=== PATIENT | male | born 1935 | race Caucasian/White ===

== ENCOUNTER 2019-08-17 11:47 | Inpatient (IN) | payer MEDICARE ==
[~2019-08-17] VITALS: Ht 165.1 cm; Wt 71.5 kg
[~2019-08-17 11:47] MED LIST: ACET65TA OR; COUM1TAB18 OR; DIOV80TA OR; FISH1000 OR; GARLPOW PO; LISI20TA5 OR; PERC5TAB8 OR
[2019-08-17] MEDS ORDERED: METOPROLOL TART 25 MG TABLET PO ONE (12:15)
[2019-08-17] MEDS ORDERED: ASPIRIN 81 MG CHEW TABLET PO ONE (12:15)
[2019-08-17] MEDS: METOPROLOL 5 MG/5 ML VIAL IV SCH ×3 (12:20→13:03)
[2019-08-17 12:22] LABS: BASO # 0.1 10^3/uL (0.0-0.2); EOS # 0.1 10^3/uL (0.0-0.5); HEMATOCRIT 51.7 % (42.0-52.0); HEMOGLOBIN 17.4 g/dl (13.5-17.5); LYMPH # 1.1 10^3/uL (1.5-5.0); LYMPH % 14.8 % (24.0-44.0); MEAN CORPUSCULAR HEMOGLOBIN 33.5 pg (27.0-33.0); MEAN CORPUSCULAR HGB CONC 33.7 g/dl (32.0-36.5); MEAN CORPUSCULAR VOLUME 99.6 fl (80.0-96.0); MONO # 0.5 10^3/uL (0.0-0.8); MONO % 7.1 % (0.0-5.0); NEUTROPHILS # 5.8 10^3/uL (1.5-8.5); NEUTROPHILS % 75.7 % (36.0-66.0); PLATELET COUNT, AUTOMATED 195 10^3/uL (150-450); RED BLOOD COUNT 5.19 10^6/uL (4.30-6.10); WHITE BLOOD COUNT 7.6 10^3/uL (4.0-10.0)
[2019-08-17] MEDS ORDERED: FUROSEMIDE 40MG/4ML VIAL (J1940) IV ONE (12:30)
[2019-08-17 12:35] LABS: INR 1.3; PROTHROMBIN TIME 15.9 SECONDS (11.8-14.0)
[2019-08-17 12:36] LABS: PARTIAL THROMBOPLASTIN TIME 30.3 SECONDS (25.0-38.4)
[2019-08-17 13:05] LABS: ALBUMIN 3.8 GM/DL (3.2-5.2); BILIRUBIN,DIRECT 0.4 MG/DL (0.0-0.2); BILIRUBIN,TOTAL 1.3 MG/DL (0.2-1.0); CK-MB VALUE MASS 4.8 NG/ML (<3.6); CREATININE FOR GFR 1.24 MG/DL (0.70-1.30); GLOMERULAR FILTRATION RATE 59.3 (>35); MB/CK RELATIVE INDEX 4.29 (< OR =4); POTASSIUM SERUM 4.5 MEQ/L (3.5-5.1); THYROID STIMULATING HORMONE 3.33 uIU/ML (0.358-3.740); TOTAL PROTEIN 6.6 GM/DL (6.4-8.2); TROPONIN I 0.05 NG/ML (< 0.10)
--- NOTE | 2019-08-17 13:45 | REP ---
REASON: Chest pain. Latest for comparison is frontal view obtained as part of a rib series 04/05/2013. The technique utilized in obtaining the radiograph has magnified the cardiac silhouette and accentuated the interstitial markings. There is cardiomegaly accentuated by technique. There is a diffuse increase in the interstitial markings accentuated by technique. There are no patchy opacities or definite pleural effusions. 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 There is no change in the osseous structures. IMPRESSION: Technique as described above with additional findings. I cannot rule out mild interstitial edema superimposed on chronic change. Electronically Signed by Edmundo Harper DO 08/17/2019 04:07 P
--- NOTE | 2019-08-17 14:38 | HPEPDOC ---
[facility] Medical History & Physical Date of Admission August 17, 2019 Date of Service: August 17, 2019 Attending Physician: Meliza Concepcion MD History and Physical CHIEF COMPLAINT: Worsening shortness of breath HISTORY OF PRESENT ILLNESS: The patient is an 83-year-old male with no significant past medical history who presented to [facility] after being sent here from urgent care for substernal chest pain and increasing shortness of breath.Patient says yesterday while working out in the yard he had severe, 8/10 chest pain with lifting mulch. Patient states that his symptoms of shortness of breath, anterior chest pains are not new and have been present over the past one year on and off. Chest pain is anteriorly located, nonradiating, present for most times 20 mins, dull in character. Pain is worse with activity or heavy activity (lifting, etc.). Other associated symptoms include palpitations in the chest (over the past 1 year) increased productive "coughing" with white phlegm, lower ext swelling worsened over the past 2 weeks. He denies lightheadedness and dizziness, nausea, vom iting, diaphoresis. No prior cardiac history, no family history. In the ER, vital signs showed temperature 96.2, heart rate 791 13 H Chuck fibrillation with RVR, respiratory rate 2627, blood pressure 976031/968544, and 97% on room air. Chest x-ray showed cardiomegaly, cannot rule out mild interstitial markings with chronic changes, no opacities or pleural effusions. He was noted to have 3+ pitting edema in the bilateral lower extremities. He admitted to drinking 1 quart of alcohol every 2 weeks, 3 shots per night. H&H 17.4/51.4, BNP 6197, CK-MB 4.8, troponin negative 1. TSH was within normal limits. The patient was given Lopressor 5 mg IV 1, metoprolol tartrate 25 mg by mouth 1, aspirin 325 mg by mouth, Lasix 40 mg IV. Blood pressure improved to 146/100, heart rate 78 and irregularly irregular. ECG showed atrial fibrillation with RVR with heart rate of 102, anterior fascicular block, nonspecific ST and T wave abnormalities. When compared to an ECG in 2012 there appear to be some new changes. The patient was admitted under hospitalist service with a diagnosis of atrial fibrillation with RVRnew diagnosis, acute congestive heart failure with exacerbation, uncontrolled hypertension. REVIEW OF SYSTEMS: CONSTITUTIONAL: Denies lack of energy, unexplained weight gain or weight loss, loss of appetite, fever, night sweats EYES: Denies eye drainage, eye pain, visual changes, dry/irritated eye EARS, NOSE, MOUTH, THROAT: Denies ringing in ears, mouth sores, loose teeth, sore throat, facial numbness or pain NECK: Denies swollen glands CARDIOVASCULAR: Denies pain in legs with walking RESPIRATORY: Denies night sweats, wheezing, oxygen at home, coughing up blood GASTROINTESTINAL: Denies abdominal pain, constipation, bloody stool, diarrhea, heartburn, nausea, vomiting GENITOURINARY: Denies painful urination, bloody urine, frequent urination, urgency, leaking urine, impotence MUSCULOSKELETAL: Denies joint pain, muscle pain INTEGUMENTARY: Denies rash, itching, new skin lesion, change in existing skin lesion, hair loss or increase, breast changes. NEUROLOGICAL: Denies headaches, dizziness, difficulty walking, numbness or tingling PSYCHIATRIC: Denies depression, anxiety, recurrent bad thoughts, mood swings, hallucinations PAST MEDICAL HISTORY: 1. Hearing loss- wears hearing aid PAST SURGICAL HISTORY: 1. left knee surgery SOCIAL HISTORY: Prior smoker of 15 years, smoked 3 cigars/day. Quit 50 years ago. Drinks 1 quart of alcohol every 2 weeks, 3 shots/night. Denies drug use. Patient lives with his in the local area. Patient does not have a PCP that he follows with. Patient is a DNR/DNI. FAMILY HISTORY: Father: no medical issues, in 70's Mother: multiple sclerosis, at 82 y/o Brother: DM type II, at 74 y/o ALLERGIES: Please see below. HOME MEDICATIONS: Please see below. PHYSICAL EXAMINATION: CONSTITUTIONAL: No acute distress, resting comfortably, AAO x 3 EYES: PERRLA, EOM intact HENT, MOUTH: Normocephalic, atraumatic, moist mucous membranes, NECK: SUPPLE, no JVD, no lymphadenopathy, no carotid bruit CV: irregularly irregular rhythm, rate controlled, S1S2 normal, no murmurs/rubs/gallops RESPIRATORY: Clear to auscultation bilaterally, no rales/rhonchi/wheezes GI: obese abdomen, BS positive in 4 quadrants, soft, nontender, nondistended, no rebound or guarding, no organomegaly : Deferred MUSCULOSKELETAL: Normal ROM. No cyanosis, clubbing, swelling, joint deformity. +3 pitting edema in the bilateral lower ext. INTEGUMENTARY: Intact, no rashes, no lesions, no erythema NEUROLOGIC: Cranial Nerves II-XII are intact, no focal deficits PSYCHIATRIC: Mood and affect are normal LABORATORY DATA: Please see below IMAGING: CXR: There is cardiomegaly accentuated by technique. There is a diffuse increase in the interstitial markings accentuated by technique. There are no patchy opacities or definite pleural effusions. 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 There is no change in the osseous structures. ASSESSMENT: 83 y/o M admitted for further treatment/evaluation of newly diagnosed atrial fibrillation with RVR, acute CHF exacerbation, uncontrolled HTN. PLAN: 1. Atrial fibrillation with RVR. New diagnosis but likely has been present over the past 1 year with duration of symptoms. TSH wnl, f/u UA with no other infection suspected. Started on metoprolol tartrate 25 mg PO BID, xarelto. F/u echocardiogram, cardiology consult. 2. Congestive heart failure, acute. New diagnosis and likely 2/2 to uncontrolled atrial fib vs. underlying heart disease, hx of alcohol abuse. +3 pitting edema, BNP 6197. F/u echocardiogram, lipid panel, cardiology consult, strict I&O, daily wts. C/w BB, lasix BID. 3. Uncontrolled HTN. BP better improved s/p lasix, lopressor 5 mg IV x1 and metoprolol PO. Monitor on telemetry. Started on metoprolol BID. 4. Alcohol abuse. States to drink 1 quart of alcohol every 2 weeks, 3 shots/night. Cardiomegaly seen on CXR. Started on thiamine, folate, CIWA protocol, monitor for signs of withdrawl. 5. GI px. PPI. 6. DVT px. Xarelto. DISPOSITION: Admitted under inpatient status. Plan is discharge home when me dically improved. Vital Signs Vital Signs Date Time Temp Pulse Resp B/P (MAP) Pulse Ox O2 Delivery O2 Flow Rate FiO2 08/17/19 13:03 96 192/110 08/17/19 11:59 96.2 27 97 Room Air Laboratory Data Labs 24H Laboratory Tests 2 08/17/19 12:04: Immature Granulocyte % (Auto) 0.4, Neutrophils (%) (Auto) 75.7H, Lymphocytes (%) (Auto) 14.8L, Monocytes (%) (Auto) 7.1H, Eosinophils (%) (Auto) 1.0, Basophils (%) (Auto) 1.0, Neutrophils # (Auto) 5.8, Lymphocytes # (Auto) 1.1L, Monocytes # (Auto) 0.5, Eosinophils # (Auto) 0.1, Basophils # (Auto) 0.1, Nucleated Red Blood Cells % (auto) 0.0, Prothrombin Time 15.9H, Prothromb Time International Ratio 1.30, Activated Partial Thromboplast Time 30.3, Anion Gap 8, Glomerular Filtration Rate 59.3, Calcium Level 9.0, Total Bilirubin 1.3H, Direct Bilirubin 0.4H, Aspartate Amino Transf (AST/SGOT) 35, Alanine Aminotransferase (ALT/SGPT) 49, Alkaline Phosphatase 113, Total Creatine Kinase 112, Creatine Kinase MB 4.8H, Creatine Kinase MB Relative Index 4.29H, Troponin I 0.05, IX-Ovl-P-Type Natriuretic Peptide 6197H, Total Protein 6.6, Albumin 3.8, Albumin/Globulin Ratio 1.36, Thyroid Stimulating Hormone (TSH) 3.330 08/17/19 13:56: CBC/BMP Laboratory Tests 08/17/19 12:04 Allergies Coded Allergies: No Known Allergies (Unverified , 08/17/19) A-FIB/CHADSVASC A-FIB History Current/History of A-Fib/PAF?: Yes Current PO Anticoag Therapy: Yes Age/Risk Factor Scoring CHADSVASC: CHADSVASC Response (Comments) Value Age Risk Factor Age >/= 75 years old 2 Gender Risk Factor Male 0 Hx of CHF Yes 1 Hx of HTN Yes 1 Hx of Stroke/TIA/or VTE No 0 Hx of Diabetes No 0 Hx of Vascular Disease No 0 Total 4 Treatment Treatment ordered: Rivaroxaban Meliza Concepcion MD August 17, 2019 14:37
[2019-08-17 15:23] LABS: CHOLESTEROL RISK RATIO 3.651 (<5)
[2019-08-17] MEDS ORDERED: MORPHINE 2 MG/ML 1ML VIAL (J2270) IV PRN (15:30)
[2019-08-17] MEDS ORDERED: NITROGLYCERIN 0.4 MG SUBL TABLET SL PRN (15:30)
--- NOTE | 2019-08-17 15:43 | ECGEPIP ---
[facility] - ED Test Date: 2019-08-17 Pat Name: OTILIA KURTZ Department: Room: - Gender: Male Hook Up Driver: jfjosse : 1935 Requested By: NICK Mclaughlin Order Number: [id number] Reading MD: Nick Amezquita Measurements Intervals [place] Rate: 102 P: NM: 0 QRS: -48 QRSD: 125 T: 90 QT: 355 QTc: 463 Interpretive Statements ATRIAL FIBRILLATION WITH RAPID VENTRICULAR RESPONSE LEFT ANTERIOR FASCICULAR BLOCK Prolonged QTc interval Intraventricular conduction delay Inferior Q waves of uncertain significance MODERATE VOLTAGE CRITERIA FOR LVH, CONSIDER NORMAL VARIANT NONSPECIFIC ST & T-WAVE ABNORMALITY Comparison tracing not on file Baseline artifact Electronically Signed on 08-17-2019 15:42:48 EDT by Nick Amezquita
[2019-08-17 15:53] LABS: HEMOGLOBIN A1c 6.1 %
[2019-08-17 17:30] VITALS: BP 152/98
[2019-08-17] MEDS ORDERED: RIVAROXABAN 15 MG TAB (XARELTO) PO SCH ×2 (18:00)
[2019-08-17] MEDS: THIAMINE 100 MG TAB PO SCH (18:11)
[2019-08-17] MEDS: FOLIC ACID 1 MG TAB PO SCH (18:11)
[2019-08-17] MEDS: PANTOPRAZOLE 20 MG TAB PO SCH (19:02)
[2019-08-17] MEDS ORDERED: FUROSEMIDE 40MG/4ML VIAL (J1940) IV SCH (21:00)
[2019-08-17 21:26] VITALS: BP 115/72
[2019-08-17] MEDS: METOPROLOL TART 25 MG TABLET PO SCH (21:33)
[2019-08-17 22:00] VITALS: BP 115/72
[2019-08-18 01:33] LABS: APPEARANCE, URINE CLEAR (CLEAR); BACTERIA, URINE AUTO NEGATIVE (NEGATIVE); BILIRUBIN, URINE AUTO NEGATIVE (NEGATIVE); BLOOD, URINE BLOOD NEGATIVE (NEGATIVE); COLOR, URINE STRAW (YELLOW); GLUCOSE, URINE (UA) AUTO NEGATIVE (NEGATIVE); KETONE, URINE AUTO NEGATIVE (NEGATIVE); LEUKOCYTE ESTERASE, URINE AUTO NEGATIVE (NEGATIVE); NITRITE, URINE AUTO NEGATIVE (NEGATIVE); PROTEIN, URINE AUTO NEGATIVE (NEGATIVE); RBC, URINE AUTO 3 /HPF (0-3); SPECIFIC GRAVITY URINE AUTO 1.005 (1.002-1.035); SQUAMOUS EPITHELIAL CELL UR AU 0 /HPF (0-6); UROBILINOGEN, URINE AUTO 0.2 mg/dL (0.0-2.0); WBC, URINE AUTO 1 /HPF (0-3)
[2019-08-18 05:25] VITALS: BP 152/98
[2019-08-18 06:00] VITALS: BP 158/88
[2019-08-18 06:52] LABS: HEMOGLOBIN 16.5 g/dl (13.5-17.5); MEAN CORPUSCULAR HEMOGLOBIN 32.5 pg (27.0-33.0); MEAN CORPUSCULAR VOLUME 98.4 fl (80.0-96.0); PLATELET COUNT, AUTOMATED 199 10^3/uL (150-450); RED BLOOD COUNT 5.08 10^6/uL (4.30-6.10)
[2019-08-18 07:18] LABS: ALBUMIN 3.4 GM/DL (3.2-5.2); BILIRUBIN,TOTAL 1.5 MG/DL (0.2-1.0); CALCIUM LEVEL 8.8 MG/DL (8.8-10.2); CREATININE FOR GFR 1.41 MG/DL (0.70-1.30); GLOMERULAR FILTRATION RATE 51.1 (>35); POTASSIUM SERUM 4.1 MEQ/L (3.5-5.1); TOTAL PROTEIN 6.1 GM/DL (6.4-8.2)
[2019-08-18] MEDS ORDERED: FUROSEMIDE 40MG/4ML VIAL (J1940) IV SCH (09:00)
[2019-08-18] MEDS: PANTOPRAZOLE 20 MG TAB PO SCH (10:24)
[2019-08-18] MEDS: ASPIRIN 81 MG ENTERIC TAB PO SCH (10:24)
[2019-08-18] MEDS: APIXABAN 5 MG TAB (ELIQUIS) PO SCH ×2 (10:24→21:52)
[2019-08-18] MEDS: THIAMINE 100 MG TAB PO SCH (10:24)
[2019-08-18] MEDS: FOLIC ACID 1 MG TAB PO SCH (10:24)
[2019-08-18] MEDS: METOPROLOL TART 25 MG TABLET PO SCH ×2 (10:28→21:52)
--- NOTE | 2019-08-18 12:11 | ECHO ---
DATE OF SERVICE: 08/17/2019 REFERRING PROVIDER: Dr. Meliza Concepcion REASON FOR THE STUDY: Atrial fibrillation, heart failure. PATIENT LOCATION: Emergency room. 2D MEASUREMENTS: IVS: 1.2 cm LVPW: 1.2 cm LV: 5.4 cm LA: 4.8 cm Aorta: 3.4 cm IVC: 2.4 cm DOPPLER MEASUREMENTS: Peak velocity across the aortic valve: 1.1 m/s Peak velocity across the LVOT: 0.6 m/s Maximum tricuspid valve velocity: 2.9 m/s 2D COMMENTS: 1. Borderline enlarged left ventricle with normal left ventricular wall thickness but with a moderately to severely depressed global left ventricular systolic function. The estimated global left ventricular systolic ejection fraction is 30%. 2. Mildly enlarged left atrium. The right atrium and the right ventricle appeared to be normal in size. A sigmoid appearance of the basal ventricular septum was noted. 3. Mildly enlarged left atrium at 4.8 cm. 4. Normal aortic root. 5. No pericardial effusion seen. 6. Mildly calcified aortic valve with normal leaflet excursion. Mildly calcified mitral annulus with normal anterior mitral valve leaflet motion. Normal tricuspid valve and pulmonic valve. The proximal pulmonary artery branches also appeared to be normal. 7. The inferior vena cava was dilated, central venous pressure might be elevated. DOPPLER: It detects trace aortic regurgitation, mild mitral regurgitation, trace pulmonic regurgitation, and moderate tricuspid regurgitation. The calculated pulmonary artery systolic pressure varies between 40-50 mmHg. Assessment of the left ventricular diastolic function was limited in view of the underlying arrhythmia noted, atrial fibrillation. IMPRESSION: 1. Moderately severe global left ventricular systolic dysfunction with diffuse hypokinesis. Assessment of the left ventricular diastolic function was limited in view of the underlying arrhythmia/atrial fibrillation. 2. Aortic valve sclerosis with trace aortic regurgitation but no aortic stenosis. 3. Mildly enlarged left atrium with mild mitral regurgitation. 4. Moderate tricuspid regurgitation with moderate pulmonary hypertension. 5. There are findings consistent with elevated central venous pressure, the inferior vena cava was mildly enlarged. 6. Sigmoid appearance of the basal ventricular septum was noted, a benign finding. MTDD
[2019-08-18 14:00] VITALS: BP 118/72
--- NOTE | 2019-08-18 17:54 | IPNPDOC ---
Date Seen The patient was seen on 08/18/19. Progress Note SUBJECTIVE: -1.1 L/24 hr. Blood pressure and heart rate better controlled with medications. Echocardiogram showed moderately severe global left ventricular systolic dysfunction with diffuse hypokinesis. Ejection fraction approximately 30%. Lower extremity edema slightly improved. Denies chest pain, shortness of breath, nausea, vomiting. OBJECTIVE: VITAL SIGNS: Please see below PHYSICAL EXAMINATION: CONSTITUTIONAL: No acute distress, resting comfortably, AAO x 3 EYES: PERRLA, EOM intact HENT, MOUTH: Normocephalic, atraumatic, moist mucous membranes, NECK: SUPPLE, no JVD, no lymphadenopathy, no carotid bruit CV: irregularly irregular rhythm, rate controlled, S1S2 normal, no murmurs/ rubs/gallops RESPIRATORY: Clear to auscultation bilaterally, no rales/rhonchi/wheezes GI: obese abdomen, BS positive in 4 quadrants, soft, nontender, nondistended, no rebound or guarding, no organomegaly : Deferred MUSCULOSKELETAL: Normal ROM. No cyanosis, clubbing, swelling, joint deformity. +3 pitting edema in the bilateral lower ext. INTEGUMENTARY: Intact, no rashes, no lesions, no erythema NEUROLOGIC: Cranial Nerves II-XII are intact, no focal deficits PSYCHIATRIC: Mood and affect are normal LABORATORY DATA: Please see below IMAGING: Echocardiogram 08/17/19: 1. Moderately severe global left ventricular systolic dysfunction with diffuse hypokinesis. Assessment of the left ventricular diastolic function was limited in view of the underlying arrhythmia/atrial fibrillation. EF 30% 2. Aortic valve sclerosis with trace aortic regurgitation but no aortic stenosis. 3. Mildly enlarged left atrium with mild mitral regurgitation. 4. Moderate tricuspid regurgitation with moderate pulmonary hypertension. 5. There are findings consistent with elevated central venous pressure, the inferior vena cava was mildly enlarged. 6. Sigmoid appearance of the basal ventricular septum was noted, a benign finding. ASSESSMENT: 83 y/o M admitted for atrial fibrillation with RVR, acute systolic CHF exacerbation, uncontrolled HTN, chest pain. I PLAN: 1. Atrial fibrillation with RVR, likely chronic. Improved rate. TSH wnl. C/w metoprolol tartrate 25 mg PO BID, eliquis BID. Cardiology consulted. 2. Systolic congestive heart failure exacerbation. Neg fluid balance. Below good strength and Glyburide okay as he only mom that she is aware that is as I In presence of uncontrolled atrial fib, ? underlying heart disease, hx of alcohol abuse. Echo above. C/w BB, lasix, eliquis BID, strict I&O, daily wts. 3. Chest pain likely 2/2 to atrial fib with RVR- resolved. Multiple risk factors for heart disease. lipid panel and HbA1c unremarkable. C/w BB, ASA, morphine, nitro PRN. 4. Uncontrolled HTN. Improved with BB, lasix. 5. Alcohol abuse. No signs of withdrawl. C/w thiamine, folate, CIWA protocol, monitor for signs of withdrawl. 6. GI px. PPI. 7. DVT px. Eliquis. DISPOSITION: Admitted under inpatient status. Plan is discharge home when medically improved. VS, I&O, 24H, Rudolphbone Vital Signs/I&O Vital Signs Date Time Temp Pulse Resp B/P (MAP) Pulse Ox O2 Delivery O2 Flow Rate FiO2 08/18/19 14:00 97.4 51 18 118/72 (87) 95 Room Air I&O- Last 24 Hours up to 6 AM 08/18/19 05:59 Intake Total 0 ml Output Total 1625 ml Balance -1625 ml Laboratory Data 24H LABS Laboratory Tests 2 08/17/19 20:21: Troponin I 0.05 08/18/19 00:39: Urine Color STRAW, Urine Appearance CLEAR, Urine pH 6.0, Urine Specific Willis 1.005, Urine Protein NEGATIVE, Urine Glucose (Auto)(UA) NEGATIVE, Urine Ketones (Auto) NEGATIVE, Urine Blood NEGATIVE, Urine Nitrite NEGATIVE, Urine Bilirubin NEGATIVE, Urine Urobilinogen 0.2, Urine Leukocyte Esterase (Auto) NEGATIVE, Urine WBC (Auto) 1, Urine RBC (Auto) 3, Urine Hyaline Casts (Auto) 0, Urine Bacteria (Auto) NEGATIVE, Urine Squamous Epithelial Cells 0, Urine Sperm (Auto) 08/18/19 05:48: Nucleated Red Blood Cells % (auto) 0.0, Anion Gap 7L, Glomerular Filtration Rate 51.1, Calcium Level 8.8, Total Bilirubin 1.5H, Aspartate Amino Transf (AST/SGOT) 27, Alanine Aminotransferase (ALT/SGPT) 42, Alkaline Phosphatase 101, Total Protein 6.1L, Albumin 3.4, Albumin/Globulin Ratio 1.26 CBC/BMP Laboratory Tests 08/18/19 05:48 Current Medications Current Medications Medications (Trade) Dose Ordered Sig/Toney Route PRN Reason Start Time Stop Time Status Last Admin Dose Admin Apixaban (Eliquis) 5 mg BID PO 08/18/19 09:00 08/18/19 10:24 Aspirin (Ecotrin) 81 mg DAILY PO 08/18/19 09:00 08/18/19 10:24 Folic Acid (Folic Acid) 1 mg DAILY PO 08/17/19 09:00 08/18/19 10:24 Furosemide (LASIX injection) 30 mg BID IV 08/17/19 21:00 08/18/19 08:04 DC 08/17/19 21:33 Furosemide (LASIX injection) 40 mg DAILY IV 08/18/19 09:00 08/18/19 10:25 Home Med (Med Rec Complete!) ASDIRECTED XX 08/17/19 14:00 08/17/19 14:00 DC Metoprolol Tartrate (Lopressor) 5 mg Q5M IV 08/17/19 12:15 08/17/19 12:26 DC 08/17/19 13:03 Metoprolol Tartrate (Lopressor) 25 mg BID PO 08/17/19 21:00 08/18/19 10:28 Morphine Sulfate (Morphine Sulfate Inj) 1 mg Q8HP PRN IV SEVERE PAIN (PS 8-10) 08/17/19 15:30 Nitroglycerin (Nitrostat (1/ 150)) 0.4 mg Q5MP PRN SL CHEST PAIN 08/17/19 15:30 Pantoprazole Sodium (Protonix) 20 mg DAILY PO 08/17/19 09:00 08/18/19 10:24 Rivaroxaban (Xarelto) 15 mg BIDWM PO 08/17/19 18:00 08/17/19 14:33 DC Rivaroxaban (Xarelto) 15 mg DAILY@18 PO 08/17/19 18:00 08/18/19 00:54 DC 08/17/19 18:11 Thiamine HCl (Thiamine HCl) 100 mg DAILY PO 08/17/19 09:00 08/18/19 10:24 Allergies Coded Allergies: No Known Allergies (Unverified , 08/17/19) Meliza Concepcion MD August 18, 2019 17:54
[2019-08-18 21:49] VITALS: BP 145/97
[2019-08-18 22:00] VITALS: BP 145/97
[2019-08-19 06:00] VITALS: BP 142/92
[2019-08-19 06:43] LABS: HEMATOCRIT 50.1 % (42.0-52.0); MEAN CORPUSCULAR HEMOGLOBIN 33.6 pg (27.0-33.0); MEAN CORPUSCULAR HGB CONC 33.9 g/dl (32.0-36.5); PLATELET COUNT, AUTOMATED 190 10^3/uL (150-450); RED BLOOD COUNT 5.06 10^6/uL (4.30-6.10); WHITE BLOOD COUNT 7.2 10^3/uL (4.0-10.0)
[2019-08-19 07:14] LABS: ALBUMIN 3.2 GM/DL (3.2-5.2); BILIRUBIN,TOTAL 1.6 MG/DL (0.2-1.0); CALCIUM LEVEL 8.4 MG/DL (8.8-10.2); CREATININE FOR GFR 1.46 MG/DL (0.70-1.30); GLOMERULAR FILTRATION RATE 49.1 (>35); POTASSIUM SERUM 3.9 MEQ/L (3.5-5.1)
[2019-08-19] MEDS: ASPIRIN 81 MG ENTERIC TAB PO SCH (09:46)
[2019-08-19] MEDS: PANTOPRAZOLE 20 MG TAB PO SCH (09:46)
[2019-08-19] MEDS: APIXABAN 5 MG TAB (ELIQUIS) PO SCH ×2 (09:46→21:01)
[2019-08-19] MEDS: FOLIC ACID 1 MG TAB PO SCH (09:46)
[2019-08-19] MEDS: THIAMINE 100 MG TAB PO SCH (09:46)
[2019-08-19] MEDS: METOPROLOL TART 25 MG TABLET PO SCH ×2 (09:48→21:02)
[2019-08-19] MEDS: FUROSEMIDE 40MG/4ML VIAL (J1940) IV SCH ×2 (09:49→16:57)
[2019-08-19 14:00] VITALS: BP 151/77
--- NOTE | 2019-08-19 16:01 | IPNPDOC ---
Date Seen The patient was seen on 08/19/19. Progress Note SUBJECTIVE: +325/24 hr. Blood pressure (goal <150/90 for his age) and heart rate (goal HR <110 bpm) better controlled with medications. Increased lasix to 30 mg IV BID, BNP still elevated. Denies chest pain, shortness of breath, nausea, vomiting. OBJECTIVE: VITAL SIGNS: Please see below PHYSICAL EXAMINATION: CONSTITUTIONAL: No acute distress, resting comfortably, AAO x 3 EYES: PERRLA, EOM intact HENT, MOUTH: Normocephalic, atraumatic, moist mucous membranes, NECK: SUPPLE, no JVD, no lymphadenopathy, no carotid bruit CV: irregularly irregular rhythm, rate controlled, S1S2 normal, no murmurs/rubs/gallops RESPIRATORY: Clear to auscultation bilaterally, no rales/rhonchi/wheezes GI: obese abdomen, BS positive in 4 quadrants, soft, nontender, nondistended, no rebound or guarding, no organomegaly : Deferred MUSCULOSKELETAL: Normal ROM. No cyanosis, clubbing, swelling, joint deformity. +2 pitting edema in the bilateral lower ext- slightly improved. INTEGUMENTARY: Intact, no rashes, no lesions, no erythema NEUROLOGIC: Cranial Nerves II-XII are intact, no focal deficits PSYCHIATRIC: Mood and affect are normal LABORATORY DATA: Please see below IMAGING: No new imaging ASSESSMENT: 83 y/o M admitted for atrial fibrillation with RVR, acute systolic CHF exacerbation, uncontrolled HTN, chest pain. PLAN: 1. Systolic congestive heart failure exacerbation. + fluid balance/24 hrs but lower ext improving slowly. Increased lasix, BNP still elevated. Afib now controlled, ? underlying heart disease, hx of alcohol abuse. C/w BB, lasix BID, eliquis BID, strict I&O, daily wts. 2. Atrial fibrillation with RVR, likely chronic. C/w metoprolol tartrate 25 mg PO BID, eliquis BID. Cardiology consulted. 3. Chest pain likely 2/2 to atrial fib with RVR, cannot r/o underlying heart disease- resolved. Multiple risk factors for heart disease. Lipid panel and HbA1c unremarkable. Will need to f/u with cardiology to see about additional testing (i.e. stress test). C/w BB, ASA, morphine, nitro PRN. 4. HTN. Goal <150/90. Improved with BB, lasix. 5. Alcohol abuse. D/c CIWA, no signs of withdrawl. C/w thiamine, folate. 6. GI px. PPI. 7. DVT px. Eliquis. DISPOSITION: Admitted under inpatient status. Will need new patient appt and cardiology appointment made prior to discharge. Plan is discharge home when medically improved. VS, I&O, 24H, Fishbone Vital Signs/I&O Vital Signs Date Time Temp Pulse Resp B/P (MAP) Pulse Ox O2 Delivery O2 Flow Rate FiO2 08/19/19 14:00 97.5 66 18 151/77 (101) 97 Room Air I&O- Last 24 Hours up to 6 AM 08/19/19 06:00 Intake Total 850 ml Output Total 0 ml Balance 850 ml Laboratory Data 24H LABS Laboratory Tests 2 08/19/19 06:15: Nucleated Red Blood Cells % (auto) 0.0, Anion Gap 7L, Glomerular Filtration Rate 49.1, Calcium Level 8.4L, Total Bilirubin 1.6H, Aspartate Amino Transf (AST/SGOT) 27, Alanine Aminotransferase (ALT/SGPT) 39, Alkaline Phosphatase 101, GY-Gmd-N-Type Natriuretic Peptide 6119H, Total Protein 6.0L, Albumin 3.2, Albumin/Globulin Ratio 1.14 CBC/BMP Laboratory Tests 08/19/19 06:15 Current Medications Current Medications Medications (Trade) Dose Ordered Sig/Toney Route PRN Reason Start Time Stop Time Status Last Admin Dose Admin Apixaban (Eliquis) 5 mg BID PO 08/18/19 09:00 08/19/19 09:46 Aspirin (Ecotrin) 81 mg DAILY PO 08/18/19 09:00 08/19/19 09:46 Folic Acid (Folic Acid) 1 mg DAILY PO 08/17/19 09:00 08/19/19 09:46 Furosemide (LASIX injection) 30 mg BID IV 08/17/19 21:00 08/18/19 08:04 DC 08/17/19 21:33 Furosemide (LASIX injection) 30 mg BID@0900,1700 IV 08/19/19 09:00 08/19/19 09:49 Furosemide (LASIX injection) 40 mg DAILY IV 08/18/19 09:00 08/19/19 07:59 DC 08/18/19 10:25 Home Med (Med Rec Complete!) ASDIRECTED XX 08/17/19 14:00 08/17/19 14:00 DC Metoprolol Tartrate (Lopressor) 5 mg Q5M IV 08/17/19 12:15 08/17/19 12:26 DC 08/17/19 13:03 Metoprolol Tartrate (Lopressor) 25 mg BID PO 08/17/19 21:00 08/19/19 09:48 Morphine Sulfate (Morphine Sulfate Inj) 1 mg Q8HP PRN IV SEVERE PAIN (PS 8-10) 08/17/19 15:30 Nitroglycerin (Nitrostat (1/ 150)) 0.4 mg Q5MP PRN SL CHEST PAIN 08/17/19 15:30 Pantoprazole Sodium (Protonix) 20 mg DAILY PO 08/17/19 09:00 08/19/19 09:46 Rivaroxaban (Xarelto) 15 mg BIDWM PO 08/17/19 18:00 08/17/19 14:33 DC Rivaroxaban (Xarelto) 15 mg DAILY@18 PO 08/17/19 18:00 08/18/19 00:54 DC 08/17/19 18:11 Thiamine HCl (Thiamine HCl) 100 mg DAILY PO 08/17/19 09:00 08/19/19 09:46 Allergies Coded Allergies: No Known Allergies (Unverified , 08/17/19) Meliza Concepcion MD August 19, 2019 16:01
[2019-08-19 22:00] VITALS: BP 130/78
--- NOTE | 2019-08-20 05:17 | CR ---
DATE OF CONSULTATION: 08/17/2019 CARDIOLOGY CONSULTATION: REFERRING PROVIDER: Dr. Meliza Concepcion REASON FOR THE CONSULTATION: Atrial fibrillation. HISTORY OF PRESENT ILLNESS: 83-year-old male with no prior medical history and has not been seeing any physicians. Has been having shortness of breath with activities and palpitations on and off for about a year. He stated that his has been pushing for him go to see a doctor and also to go to the hospital for treatment, but he has not been listening to her. Lately, he also has been having chest discomfort on and off with activities and relieved with rest and his pedal edema continued to get worse as well as his shortness of breath. He went to a local urgent care, and he was told that he needed to go to the emergency room (ER) for further and treatment. Upon arrival at the ER, he was in atrial fibrillation with a rapid ventricular rate. His vital signs revealed blood pressure of 178/122 with a pulse of 109 and oxygen saturation of 97% with a temperature of 96.2 degrees Fahrenheit. His respiratory rate was reported to be 27. He was on given intravenous (IV) Lopressor 5 mg and oral Lopressor 25 mg, then admitted for further management and monitoring. Case was discussed with the admitting provider. When I saw Mr. Riaz Trotter on the fourth floor, he was sitting up in bed in no acute distress at rest and he stated that he was very happy that he came to the ER and he is already feeling much better. He has not been having any chest pain in the hospital, and he stated that he has passed a lot of urine and his pedal edema already has improved. He denies any orthopnea or paroxysmal nocturnal dyspnea (PND). He denies any dizziness, lightheadedness, syncope, or near syncope. He denies any bleeding. PAST SURGICAL HISTORY: Positive for hernia repair in 1997, shoulder surgery in 2004, and he has a history of BPH. FAMILY HISTORY: Noncontributory. CURRENT MEDICATIONS: - aspirin 81 mg by mouth daily - metoprolol tartrate 25 mg by mouth twice a day - Lasix 30 mg IV twice a day - rivaroxaban 15 mg by mouth daily - nitroglycerin sublingual as needed for chest pain - thiamine 100 mg by mouth daily - folic acid 1 mg by mouth daily - pantoprazole 20 mg by mouth daily SOCIAL HISTORY: Patient lives with his for more than 50 years. He does not smoke, but he drinks alcohol at times. He denies any illicit drugs. ALLERGIES: No known drug allergies. ADVANCE DIRECTIVES: He has a DO NOT INTUBATE and DO NOT RESUSCITATE status. PHYSICAL EXAMINATION: Patient is alert and oriented, in no acute distress at rest, and very pleasant. His vital signs when I saw him revealed a blood pressure of 115/72 with a pulse of 79, respirations 16, and his maximum temperature was 97.6 degrees Fahrenheit with an oxygen saturation of 96% on room air. He has passed about 1.1 liters since in the hospital. Examination of the head: Atraumatic. Fundus examination was not done. Neck is supple with extended jugular. The lungs did not reveal any wheezing or crackles at the time of examination. The heart examination revealed an irregular heart sound without gallops. The point of maximal impulse (PMI) is displaced inferiorly and laterally. There is no rub. There is a systolic murmur, grade 1/6, at the lower left sternal border and at the apex without any significant radiation. Abdomen appeared to be unremarkable. Extremities revealed +1 to +2 bilateral lower leg and ankle edema. Neurological examination was limited but no focal deficit. LABS: BMP revealed a sodium of 140, potassium 4.5, chloride 106, CO2 of 26, BUN 27, creatinine 1.24, GFR 59.3, and calcium 9.0. Liver enzymes revealed a total bilirubin of 1.3, direct bilirubin 0.4, AST 35, ALT 49, alkaline phosphatase 113, total protein 6.6, albumin 3.8. Serum troponin has been negative at 0.05, 0.06, and 0.05. Hemoglobin A1c was 6.1. Lipid profile revealed a total cholesterol of 157, triglycerides 89, LDL 96, and HDL 43. Serum TSH was 3.3. CBC revealed WBC of 7.6, hemoglobin 17.4, hematocrit 51.7, and platelet 195,000. PT was 15.9 with an INR of 1.3 and a PTT of 30.3 COVID-19 PCR was negative. Electrocardiogram done 08/17/2019 at 12:09 revealed atrial fibrillation at 102 beats per minute, left axis deviation and left anterior hemiblock, intraventricular conduction delay (IVCD), and nonspecific ST-T abnormalities. No prior tracing for comparison. Chest x-ray revealed mild interstitial edema. Echocardiogram revealed an estimated left ventricular ejection fraction (LVEF) of 30%. There was diffuse hypokinesis. IMPRESSION: 1. Atrial fibrillation and now with a controlled ventricular rate with a small dose of the short-acting beta-marni metoprolol tartrate, and I will continue the same. He is on Xarelto for prevention of thromboembolic events. He needs to be treated, but I would recommend to change it to Eliquis at 5 mg by mouth twice a day because there is less risk of bleeding. It seems that the atrial fibrillation is chronic because he has been symptomatic for about a year, if not more, according to the patient. There is no need at this present time for cardioversion. This will be revisited in a few months as outpatient. 2. 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 He is on a beta-marni with metoprolol tartrate. I will continue the same for now. I recommend to start him on Entresto at the lower dose and, in that case, I will discontinue the diuretics or cut it back to 10 mg daily. He appears to be doing well even though his LVEF is markedly depressed. If he cannot receive the Entresto, I will discharge him on an angiotensin-converting enzyme (MICKI) or an ARB with indications for low LVEF, such as valsartan or candesartan. In that case, I will continue with the furosemide at 20 mg by mouth daily. It was a pleasure to participate the care of Mr. Riaz Trotter for his underlying cardiac condition. He appears to be stable, and he probably may be able to go home by Tuesday. If he goes home, I will call him on Tuesday and give an appointment for this coming Tuesday or Tuesday. Please do not hesitate to call me over the weekend if you have any questions or issues. MAXIMILIAN
[2019-08-20 06:00] VITALS: BP 150/97
[2019-08-20 06:07] LABS: HEMATOCRIT 50.4 % (42.0-52.0); HEMOGLOBIN 16.7 g/dl (13.5-17.5); MEAN CORPUSCULAR HEMOGLOBIN 32.4 pg (27.0-33.0); MEAN CORPUSCULAR HGB CONC 33.1 g/dl (32.0-36.5); MEAN CORPUSCULAR VOLUME 97.9 fl (80.0-96.0); PLATELET COUNT, AUTOMATED 199 10^3/uL (150-450); RED BLOOD COUNT 5.15 10^6/uL (4.30-6.10); WHITE BLOOD COUNT 7.8 10^3/uL (4.0-10.0)
[2019-08-20 06:30] LABS: ALBUMIN 3.3 GM/DL (3.2-5.2); BILIRUBIN,TOTAL 1.7 MG/DL (0.2-1.0); CALCIUM LEVEL 8.4 MG/DL (8.8-10.2); CREATININE FOR GFR 1.41 MG/DL (0.70-1.30); GLOMERULAR FILTRATION RATE 51.1 (>35); POTASSIUM SERUM 3.9 MEQ/L (3.5-5.1); TOTAL PROTEIN 6.1 GM/DL (6.4-8.2)
[2019-08-20] MEDS: PANTOPRAZOLE 20 MG TAB PO SCH (08:30)
[2019-08-20] MEDS: ASPIRIN 81 MG ENTERIC TAB PO SCH (08:30)
[2019-08-20] MEDS: THIAMINE 100 MG TAB PO SCH (08:30)
[2019-08-20] MEDS: FOLIC ACID 1 MG TAB PO SCH (08:30)
[2019-08-20] MEDS: FUROSEMIDE 40MG/4ML VIAL (J1940) IV SCH ×2 (08:30→17:11)
[2019-08-20] MEDS: APIXABAN 5 MG TAB (ELIQUIS) PO SCH ×2 (08:30→20:36)
[2019-08-20] MEDS: METOPROLOL TART 25 MG TABLET PO SCH ×2 (08:31→20:36)
[2019-08-20] MEDS: **hydrALAZINE HCL** 25 MG TAB PO SCH ×2 (09:57→20:36)
[2019-08-20 14:00] VITALS: BP 120/70
--- NOTE | 2019-08-20 16:42 | IPNPDOC ---
Date Seen The patient was seen on 08/20/19. Progress Note SUBJECTIVE: +890/24 hr. Blood pressure (goal <150/90 for his age) and heart rate (goal HR <110 bpm). Started on hydralazine 25 mg PO BID today, monitoring blood pressure next 24 hours and continuing lasix. If BP tolerates, likely d/c home in AM. Denies chest pain, shortness of breath, nausea, vomiting. OBJECTIVE: VITAL SIGNS: Please see below PHYSICAL EXAMINATION: CONSTITUTIONAL: No acute distress, resting comfortably, AAO x 3 EYES: PERRLA, EOM intact HENT, MOUTH: Normocephalic, atraumatic, moist mucous membranes, NECK: SUPPLE, no JVD, no lymphadenopathy, no carotid bruit CV: irregularly irregular rhythm, rate controlled, S1S2 normal, no murmurs/rubs/gallops RESPIRATORY: Clear to auscultation bilaterally, no rales/rhonchi/wheezes GI: obese abdomen, BS positive in 4 quadrants, soft, nontender, nondistended, no rebound or guarding, no organomegaly : Deferred MUSCULOSKELETAL: Normal ROM. No cyanosis, clubbing, swelling, joint deformity. +1 pitting edema in the bilateral lower ext- much improved from admission INTEGUMENTARY: Intact, no rashes, no lesions, no erythema NEUROLOGIC: Cranial Nerves II-XII are intact, no focal deficits PSYCHIATRIC: Mood and affect are normal LABORATORY DATA: Please see below IMAGING: No new imaging ASSESSMENT: 83 y/o M admitted for atrial fibrillation with RVR, acute systolic CHF exacerbation, uncontrolled HTN, chest pain. PLAN: 1. Systolic congestive heart failure exacerbation. + fluid balance/24 hrs but -8 lbs since admission, lower ext edema much improved. C/w lasix BID (he will need to be discharged with lower dose lasix at discharge), BB, hydralazine BID, eliquis BID, strict I&Os, daily wts. Dr. Rincon (Cardiology) would like to see patient in office 08/24/19 after discharge. 2. Atrial fibrillation with RVR, likely chronic, new diagnosis. Controlled. C/w metoprolol tartrate 25 mg PO BID, eliquis BID. 3. Chest pain likely 2/2 to atrial fib with RVR, cannot r/o underlying heart disease- resolved. Multiple risk factors for heart disease. Lipid panel and HbA1c unremarkable. Will need to f/u with cardiology to see about additional testing (i.e. stress test). C/w BB, ASA, morphine, nitro PRN. 4. HTN. Goal <150/90. C/w hydralazine BID, BB, lasix. 5. Elevated bilirubin. No abdominal pain, other labs wnl. F/u CMP in AM. 6. Elevated Cr. Not acute kidney injury, likely from lasix use. Monitor daily. 7. Alcohol abuse. No signs of withdrawl. C/w thiamine, folate. 8. GI px. PPI. 9. DVT px. Eliquis. DISPOSITION: Admitted under inpatient status. Will need new patient appt for PCP and cardiology appointment made prior to discharge. Plan is discharge home on 08/21/19 if tolerates additional BP medication overnight. VS, I&O, 24H, Fishbone Vital Signs/I&O Vital Signs Date Time Temp Pulse Resp B/P (MAP) Pulse Ox O2 Delivery O2 Flow Rate FiO2 08/20/19 14:00 97.4 72 18 120/70 (87) 100 Room Air I&O- Last 24 Hours up to 6 AM 08/20/19 06:00 Intake Total 890 ml Output Total 0 ml Balance 890 ml Laboratory Data 24H LABS Laboratory Tests 2 08/20/19 05:10: Nucleated Red Blood Cells % (auto) 0.0, Anion Gap 8, Glomerular Filtration Rate 51.1, Calcium Level 8.4L, Total Bilirubin 1.7H, Aspartate Amino Transf (AST/SGOT) 26, Alanine Aminotransferase (ALT/SGPT) 35, Alkaline Phosphatase 95, Total Protein 6.1L, Albumin 3.3, Albumin/Globulin Ratio 1.18 CBC/BMP Laboratory Tests 08/20/19 05:10 Current Medications Current Medications Medications (Trade) Dose Ordered Sig/Toney Route PRN Reason Start Time Stop Time Status Last Admin Dose Admin Apixaban (Eliquis) 5 mg BID PO 08/18/19 09:00 08/20/19 08:30 Aspirin (Ecotrin) 81 mg DAILY PO 08/18/19 09:00 08/20/19 08:30 Folic Acid (Folic Acid) 1 mg DAILY PO 08/17/19 09:00 08/20/19 08:30 Furosemide (LASIX injection) 30 mg BID IV 08/17/19 21:00 08/18/19 08:04 DC 08/17/19 21:33 Furosemide (LASIX injection) 30 mg BID@0900,1700 IV 08/19/19 09:00 08/20/19 08:30 Furosemide (LASIX injection) 40 mg DAILY IV 08/18/19 09:00 08/19/19 07:59 DC 08/18/19 10:25 Home Med (Med Rec Complete!) ASDIRECTED XX 08/17/19 14:00 08/17/19 14:00 DC Hydralazine HCl (Apresoline) 25 mg BID PO 08/20/19 09:00 08/20/19 09:57 Metoprolol Tartrate (Lopressor) 5 mg Q5M IV 08/17/19 12:15 08/17/19 12:26 DC 08/17/19 13:03 Metoprolol Tartrate (Lopressor) 25 mg BID PO 08/17/19 21:00 08/20/19 08:31 Morphine Sulfate (Morphine Sulfate Inj) 1 mg Q8HP PRN IV SEVERE PAIN (PS 8-10) 08/17/19 15:30 Nitroglycerin (Nitrostat (1/ 150)) 0.4 mg Q5MP PRN SL CHEST PAIN 08/17/19 15:30 Pantoprazole Sodium (Protonix) 20 mg DAILY PO 08/17/19 09:00 08/20/19 08:30 Rivaroxaban (Xarelto) 15 mg BIDWM PO 08/17/19 18:00 08/17/19 14:33 DC Rivaroxaban (Xarelto) 15 mg DAILY@18 PO 08/17/19 18:00 08/18/19 00:54 DC 08/17/19 18:11 Thiamine HCl (Thiamine HCl) 100 mg DAILY PO 08/17/19 09:00 08/20/19 08:30 Allergies Coded Allergies: No Known Allergies (Unverified , 08/17/19) Meliza Concepcion MD August 20, 2019 16:42
[2019-08-20 22:00] VITALS: BP_SYST 115; BP_SYST 124; BP_DIAS 74; BP_DIAS 79
[2019-08-21 05:47] LABS: HEMATOCRIT 55.1 % (42.0-52.0); HEMOGLOBIN 18.4 g/dl (13.5-17.5); MEAN CORPUSCULAR HEMOGLOBIN 33.4 pg (27.0-33.0); MEAN CORPUSCULAR HGB CONC 33.4 g/dl (32.0-36.5); PLATELET COUNT, AUTOMATED 204 10^3/uL (150-450); RED BLOOD COUNT 5.51 10^6/uL (4.30-6.10); WHITE BLOOD COUNT 8.7 10^3/uL (4.0-10.0)
[2019-08-21 06:00] VITALS: BP 134/85
[2019-08-21 06:07] LABS: ALBUMIN 3.7 GM/DL (3.2-5.2); BILIRUBIN,TOTAL 1.7 MG/DL (0.2-1.0); CALCIUM LEVEL 8.5 MG/DL (8.8-10.2); CREATININE FOR GFR 1.41 MG/DL (0.70-1.30); GLOMERULAR FILTRATION RATE 51.1 (>35); POTASSIUM SERUM 3.9 MEQ/L (3.5-5.1); TOTAL PROTEIN 6.7 GM/DL (6.4-8.2)
[2019-08-21] MEDS: FUROSEMIDE 40MG/4ML VIAL (J1940) IV SCH (09:28)
[2019-08-21 09:29] VITALS: BP 136/87
[2019-08-21] MEDS: ASPIRIN 81 MG ENTERIC TAB PO SCH (09:29)
[2019-08-21] MEDS: THIAMINE 100 MG TAB PO SCH (09:29)
[2019-08-21] MEDS: FOLIC ACID 1 MG TAB PO SCH (09:29)
[2019-08-21] MEDS: APIXABAN 5 MG TAB (ELIQUIS) PO SCH (09:29)
[2019-08-21] MEDS: **hydrALAZINE HCL** 25 MG TAB PO SCH (09:29)
[2019-08-21] MEDS: METOPROLOL TART 25 MG TABLET PO SCH (09:30)
[2019-08-21] MEDS: PANTOPRAZOLE 20 MG TAB PO SCH (09:31)
[2019-08-21] MEDS ORDERED: HYDR25TA PO (09:42)
[2019-08-21] MEDS ORDERED: METO1TAB87 PO (09:42)
[2019-08-21] MEDS ORDERED: NITR4TASL SL (09:42)
[2019-08-21] MEDS ORDERED: ELIQ5TAB PO (09:42)
[2019-08-21] MEDS ORDERED: PANT20TA2 PO (09:42)
[2019-08-21] MEDS ORDERED: LASI40TA9 PO (09:42)
[2019-08-21] MEDS ORDERED: FOLI1TAB11 PO (09:42)
[2019-08-21] MEDS ORDERED: ASPI81TAEC PO (09:42)
[2019-08-21] MEDS ORDERED: POTA10TA17 PO (09:42)
[2019-08-21] MEDS ORDERED: THIA100TA PO (09:42)
--- NOTE | 2019-08-21 13:47 | DS.PDOC ---
Discharge Summary General Date of Admission August 17, 2019 at 14:02 Date of Discharge 08/21/19 Discharge Summary PROCEDURES PERFORMED DURING STAY: None. ADMITTING DIAGNOSES: 1. A. fib with RVR. DISCHARGE DIAGNOSES: 1. A. fib with RVR, acute systolic congestive heart failure, hypertension, alcohol abuse. COMPLICATIONS/CHIEF COMPLAINT: Atrial Fibrillation With RVR HISTORY OF PRESENT ILLNESS: The patient is an 83-year-old male with no significant past medical history who presented to [facility] after being sent here from urgent care for substernal chest pain and increasing shortness of breath.Patient says yesterday while working out in the yard he had severe, 8/10 chest pain with lifting mulch. Patient states that his symptoms of shortness of breath, anterior chest pains are not new and have been present over the past one year on and off. Chest pain is anteriorly located, nonradiating, present for most times 20 mins, dull in character. Pain is worse with activity or heavy activity (lifting, etc.). Other associated symptoms include palpitations in the chest (over the past 1 year) increased productive "coughing" with white phlegm, lower ext swelling worsened over the past 2 weeks. He denies lightheadedness and dizziness, nausea, vomiting, diaphoresis. No prior cardiac history, no family history. In the ER, vital signs showed temperature 96.2, heart rate 791 13 [address] [place] fibril lation with RVR, respiratory rate 2627, blood pressure 295864/526281, and 97% on room air. Chest x-ray showed cardiomegaly, cannot rule out mild interstitial markings with chronic changes, no opacities or pleural effusions. He was noted to have 3+ pitting edema in the bilateral lower extremities. He admitted to drinking 1 quart of alcohol every 2 weeks, 3 shots per night. H&H 17.4/51.4, BNP 6197, CK-MB 4.8, troponin negative 1. TSH was within normal limits. The patient was given Lopressor 5 mg IV 1, metoprolol tartrate 25 mg by mouth 1, aspirin 325 mg by mouth, Lasix 40 mg IV. Blood pressure improved to 146/100, heart rate 78 and irregularly irregular. ECG showed atrial fibrillation with RVR with heart rate of 102, anterior fascicular block, nonspecific ST and T wave abnormalities. When compared to an ECG in 2012 there appear to be some new changes. The patient was admitted under hospitalist service with a diagnosis of atrial fibrillation with RVRnew diagnosis, acute congestive heart failure with exacerbation, uncontrolled hypertension.. HOSPITAL COURSE: 83 y/o M admitted for atrial fibrillation with RVR, acute systolic CHF exacerbation, uncontrolled HTN, chest pain. Acute Systolic congestive heart failure with exacerbation. + fluid balance/24 hrs but -8 lbs since admission, lower ext edema much improved. Patient was continued on Lasix 30 mg IV twice a day but on discharge will be discharged home on Lasix 40 mg by mouth daily, will also continue his BB, hydralazine BID, eliquis BID, strict I&Os, daily wts. Dr. Rincon (Cardiology) would like to see patient in office 08/24/19 after discharge. Atrial fibrillation with RVR, likely chronic, new diagnosis. Controlled and metoprolol tartrate 25 mg by mouth twice a day and will add eliquiss for anticoagulation as well Chest pain likely 2/2 to atrial fib with RVR, cannot r/o underlying heart disease- resolved. Multiple risk factors for heart disease. Lipid panel and HbA1c unremarkable. Will need to f/u with cardiology to see about additional testing (i.e. stress test). C/w BB, ASA, morphine, nitro PRN. HTN. Patient. Blood pressure remained under control. Blood pressure on discharge was 134/85 , continue hydralazine BID, BB, lasix. Elevated bilirubin. No abdominal pain, other labs wnl. F/u CMP in AM. Elevated Cr. Not acute kidney injury, likely from lasix use. Monitor daily. Alcohol abuse. No signs of withdrawl. C/w thiamine, folate. .. DISCHARGE MEDICATIONS: Please see below. ALLERGIES: Please see below. PHYSICAL EXAMINATION ON DISCHARGE: VITAL SIGNS: Please see below. GENERAL: Within normal limits HEENT: [place] extraocular muscles intact NECK: Supple CARDIOVASCULAR EXAMINATION: S1, S2, irregular RESPIRATORY EXAMINATION: Clear to A&P ABDOMINAL EXAMINATION: Benign EXTREMITIES: No clubbing, cyanosis, edema SKIN: Normal NEUROLOGICAL EXAMINATION: , No focal motor or or sensory deficit PSYCHIATRIC EXAMINATION: Normal LABORATORY DATA: Please see below. IMAGING: Chest x-ray: Technique as described above with additional findings. I cannot rule out mild interstitial edema superimposed on chronic change. PROGNOSIS: Good ACTIVITY: As tolerated. DIET: Cardiac DISCHARGE PLAN: Home DISPOSITION: Home, Self-Care. DISCHARGE INSTRUCTIONS: 1. As per discharge instructions. ITEMS TO FOLLOWUP ON ON OUTPATIENT: 1. Follow with cardiology and PCP in one week. DISCHARGE CONDITION: Stable. TIME SPENT ON DISCHARGE: 32 minutes. Vital Signs/I&Os Vital Signs Date Time Temp Pulse Resp B/P (MAP) Pulse Ox O2 Delivery O2 Flow Rate FiO2 08/21/19 09:30 85 08/21/19 09:29 136/87 08/21/19 06:00 97.4 18 94 Room Air I&O- Last 24 Hours up to 6 AM 08/21/19 06:00 Intake Total 940 ml Output Total 100 ml Balance 840 ml Laboratory Data Labs 24H Laboratory Tests 2 08/21/19 05:16: Nucleated Red Blood Cells % (auto) 0.0, Anion Gap 6L, Glomerular Filtration Rate 51.1, Calcium Level 8.5L, Total Bilirubin 1.7H, Aspartate Amino Transf (AST/SGOT) 29, Alanine Aminotransferase (ALT/SGPT) 35, Alkaline Phosphatase 109, Total Protein 6.7, Albumin 3.7, Albumin/Globulin Ratio 1.23 CBC/BMP Laboratory Tests 08/21/19 05:16 Discharge Medications Scheduled Apixaban (Eliquis) 5 Mg Tablet, 5 MG PO BID Aspirin (Aspirin EC) 81 Mg Tablet.dr, 81 MG PO DAILY Folic Acid (Folic Acid) 1 Mg Tablet, 1 MG PO DAILY Furosemide (Lasix) 40 Mg Tablet, 1 TAB PO DAILY Hydralazine HCl (Hydralazine HCl) 25 Mg Tablet, 25 MG PO BID Metoprolol Tartrate (Metoprolol Tartrate) 25 Mg Tablet, 25 MG PO BID Pantoprazole Sodium (Pantoprazole Sodium) 20 Mg Tablet.dr, 20 MG PO DAILY Potassium Chloride (Potassium Chloride) 10 Meq Tab.er.prt, 1 TAB PO DAILY Thiamine Hcl (Vitamin B-1) 100 Mg Tablet, 100 MG PO DAILY Scheduled PRN Nitroglycerin (Nitrostat) 0.4 Mg Tab.subl, 0.4 MG SL Q5MP PRN for CHEST PAIN Allergies Coded Allergies: No Known Allergies (Unverified , 08/17/19) APRIL REILLY MD August 21, 2019 13:47
== END 2019-08-21 11:58 | disposition home or self-care (01) | DRG 308 ==
LOC: M ED 11:47 → EDBD 11:47 → M ED INP 14:02 → ENRESERV 15:13 → M MSPAV 17:33
PROVIDERS: ADMIT Internal Medicine; ATTEND Internal Medicine
DX: I48.20 Chronic atrial fibrillation, unspecified (principal); I50.23 Acute on chronic systolic (congestive) heart failure; I11.0 Hypertensive heart disease with heart failure; F10.10 Alcohol abuse, uncomplicated; Z79.82 Long term (current) use of aspirin; Z79.899 Other long term (current) drug therapy; Z79.01 Long term (current) use of anticoagulants

== ENCOUNTER → 2019-10-03 | Outpatient (REF) | payer MEDICARE ==
[~2019-10-03] MED LIST changes: +ASPI81TAEC PO; +ELIQ5TAB PO; +FOLI1TAB11 PO; +HYDR25TA PO; +LASI40TA9 PO; +METO1TAB87 PO; +NITR4TASL SL; +PANT20TA6 PO; +POTA10TA17 PO; +THIA100TA PO
[2019-10-03 12:50] LABS: APPEARANCE, URINE CLEAR (CLEAR); BACTERIA, URINE AUTO NEGATIVE (NEGATIVE); BILIRUBIN, URINE AUTO NEGATIVE (NEGATIVE); BLOOD, URINE BLOOD NEGATIVE (NEGATIVE); COLOR, URINE YELLOW (YELLOW); GLUCOSE, URINE (UA) AUTO NEGATIVE (NEGATIVE); KETONE, URINE AUTO NEGATIVE (NEGATIVE); LEUKOCYTE ESTERASE, URINE AUTO NEGATIVE (NEGATIVE); NITRITE, URINE AUTO NEGATIVE (NEGATIVE); PROTEIN, URINE AUTO NEGATIVE (NEGATIVE); RBC, URINE AUTO 0 /HPF (0-3); SPECIFIC GRAVITY URINE AUTO 1.016 (1.002-1.035); SQUAMOUS EPITHELIAL CELL UR AU 0 /HPF (0-6); UROBILINOGEN, URINE AUTO 0.2 mg/dL (0.0-2.0); WBC, URINE AUTO 0 /HPF (0-3)
[2019-10-03 14:59] LABS: BASO # 0.1 10^3/uL (0.0-0.2); BASO % 0.9 % (0.0-1.0); EOS # 0.3 10^3/uL (0.0-0.5); EOS % 4.1 % (0.0-3.0); LYMPH # 1.2 10^3/uL (1.5-5.0); LYMPH % 16.3 % (24.0-44.0); MEAN CORPUSCULAR HEMOGLOBIN 32.8 pg (27.0-33.0); MEAN CORPUSCULAR HGB CONC 32.7 g/dl (32.0-36.5); MEAN CORPUSCULAR VOLUME 100.4 fl (80.0-96.0); MONO # 0.7 10^3/uL (0.0-0.8); MONO % 9.3 % (0.0-5.0); NEUTROPHILS # 5.2 10^3/uL (1.5-8.5); NEUTROPHILS % 68.9 % (36.0-66.0); PLATELET COUNT, AUTOMATED 197 10^3/uL (150-450); RED BLOOD COUNT 4.88 10^6/uL (4.30-6.10); WHITE BLOOD COUNT 7.6 10^3/uL (4.0-10.0)
[2019-10-03 15:18] LABS: ALBUMIN 3.6 GM/DL (3.2-5.2); BILIRUBIN,TOTAL 0.6 MG/DL (0.2-1.0); CALCIUM LEVEL 9.1 MG/DL (8.8-10.2); CHOLESTEROL RISK RATIO 5.529 (<5); CREATININE FOR GFR 1.33 MG/DL (0.70-1.30); FREE T4 0.92 NG/DL (0.76-1.46); GLOMERULAR FILTRATION RATE 54.7 (>35); POTASSIUM SERUM 4.5 MEQ/L (3.5-5.1); THYROID STIMULATING HORMONE 2.71 uIU/ML (0.358-3.740); TOTAL 25(OH) VITAMIN D 30.4 NG/ML (30.0-100.0); TOTAL PROTEIN 6.7 GM/DL (6.4-8.2)
[2019-10-03 16:25] LABS: HEMOGLOBIN A1c 6.6 %
== END ==
LOC: M LAB REF 11:22
PROVIDERS: ATTEND Nurse Practitioner Family
DX: I11.0 Hypertensive heart disease with heart failure (principal); I48.91 Unspecified atrial fibrillation; I50.9 Heart failure, unspecified; Z13.9 Encounter for screening, unspecified

== ENCOUNTER → 2019-11-19 | Outpatient (REF) | payer MEDICARE ==
[2020-01-02 18:12] LABS: ALBUMIN 3.7 GM/DL (3.2-5.2); BILIRUBIN,TOTAL 0.8 MG/DL (0.2-1.0); CALCIUM LEVEL 8.8 MG/DL (8.8-10.2); CREATININE FOR GFR 1.44 MG/DL (0.70-1.30); GLOMERULAR FILTRATION RATE 49.8 (>35); POTASSIUM SERUM 4.5 MEQ/L (3.5-5.1); TOTAL PROTEIN 6.7 GM/DL (6.4-8.2)
== END ==
LOC: M LAB REF 14:55
PROVIDERS: ATTEND Nurse Practitioner Family
DX: R60.9 Edema, unspecified (principal); N17.9 Acute kidney failure, unspecified

== ENCOUNTER → 2020-02-20 | Outpatient (REF) | payer MEDICARE ==
[2020-02-20 12:18] LABS: BASO # 0.1 10^3/uL (0.0-0.2); BASO % 0.7 % (0.0-1.0); EOS # 0.2 10^3/uL (0.0-0.5); EOS % 2.2 % (0.0-3.0); HEMOGLOBIN 16.7 g/dl (13.5-17.5); LYMPH # 1.4 10^3/uL (1.5-5.0); LYMPH % 19.6 % (24.0-44.0); MEAN CORPUSCULAR HEMOGLOBIN 31.7 pg (27.0-33.0); MEAN CORPUSCULAR HGB CONC 32.7 g/dl (32.0-36.5); MONO # 0.7 10^3/uL (0.0-0.8); MONO % 10.3 % (0.0-5.0); NEUTROPHILS # 4.8 10^3/uL (1.5-8.5); NEUTROPHILS % 66.8 % (36.0-66.0); PLATELET COUNT, AUTOMATED 202 10^3/uL (150-450); RED BLOOD COUNT 5.26 10^6/uL (4.30-6.10); WHITE BLOOD COUNT 7.2 10^3/uL (4.0-10.0)
[2020-02-20 12:49] LABS: ALBUMIN 3.9 GM/DL (3.2-5.2); BILIRUBIN,TOTAL 0.7 MG/DL (0.2-1.0); CALCIUM LEVEL 9.3 MG/DL (8.8-10.2); CHOLESTEROL RISK RATIO 4.358 (<5); CREATININE FOR GFR 1.36 MG/DL (0.70-1.30); GLOMERULAR FILTRATION RATE 53.1 (>35); MAGNESIUM LEVEL 2.3 MG/DL (1.8-2.4); POTASSIUM SERUM 4.8 MEQ/L (3.5-5.1); TOTAL PROTEIN 6.7 GM/DL (6.4-8.2)
[2020-02-20 13:07] LABS: TOTAL 25(OH) VITAMIN D 27.3 NG/ML (30.0-100.0)
== END ==
LOC: M LAB REF 11:23
PROVIDERS: ATTEND Nurse Practitioner Family
DX: R60.9 Edema, unspecified (principal); E11.69 Type 2 diabetes mellitus with other specified complication; I50.9 Heart failure, unspecified; I11.0 Hypertensive heart disease with heart failure; I48.91 Unspecified atrial fibrillation; Z79.01 Long term (current) use of anticoagulants; Z79.899 Other long term (current) drug therapy

== ENCOUNTER → 2020-07-17 | Outpatient (REF) | payer MEDICARE ==
[~2020-07-17] MED LIST changes: +ASPI-569 PO; -ASPI81TAEC PO
[2020-07-17 17:21] LABS: ALBUMIN 3.8 GM/DL (3.2-5.2); BILIRUBIN,TOTAL 0.9 MG/DL (0.2-1.0); CALCIUM LEVEL 9.2 MG/DL (8.8-10.2); CHOLESTEROL RISK RATIO 4.219 (<5); CREATININE FOR GFR 1.35 MG/DL (0.70-1.30); GLOMERULAR FILTRATION RATE 53.6 (>35); MAGNESIUM LEVEL 2.2 MG/DL (1.8-2.4); POTASSIUM SERUM 4.7 MEQ/L (3.5-5.1); TOTAL PROTEIN 6.9 GM/DL (6.4-8.2)
[2020-07-17 17:22] LABS: BASO # 0.1 10^3/uL (0.0-0.2); BASO % 1.1 % (0.0-1.0); EOS # 0.1 10^3/uL (0.0-0.5); HEMATOCRIT 48.7 % (42.0-52.0); HEMOGLOBIN 15.9 g/dl (13.5-17.5); LYMPH # 1.5 10^3/uL (1.5-5.0); MEAN CORPUSCULAR HEMOGLOBIN 32.1 pg (27.0-33.0); MEAN CORPUSCULAR HGB CONC 32.6 g/dl (32.0-36.5); MEAN CORPUSCULAR VOLUME 98.2 fl (80.0-96.0); MONO # 0.6 10^3/uL (0.0-0.8); MONO % 8.6 % (2.0-8.0); NEUTROPHILS # 4.4 10^3/uL (1.5-8.5); NEUTROPHILS % 65.8 % (36.0-66.0); PLATELET COUNT, AUTOMATED 201 10^3/uL (150-450); RED BLOOD COUNT 4.96 10^6/uL (4.30-6.10); WHITE BLOOD COUNT 6.6 10^3/uL (4.0-10.0)
[2020-07-17 17:25] LABS: TOTAL 25(OH) VITAMIN D 22.5 NG/ML (30.0-100.0)
== END ==
LOC: M LAB REF 16:11
PROVIDERS: ATTEND Nurse Practitioner Family
DX: Z00.00 Encounter for general adult medical examination without abnormal findings (principal); Z79.899 Other long term (current) drug therapy

== ENCOUNTER → 2021-09-23 | Outpatient (CLI) | payer OTHER ==
[2021-09-23 11:12] LABS: ALBUMIN 3.4 GM/DL (3.2-5.2); BILIRUBIN,TOTAL 0.6 MG/DL (0.2-1.0); CALCIUM LEVEL 8.3 MG/DL (8.8-10.2); CREATININE FOR GFR 1.34 MG/DL (0.70-1.30); GLOMERULAR FILTRATION RATE 53.9 (>35); POTASSIUM SERUM 3.9 MEQ/L (3.5-5.1); TOTAL PROTEIN 6.4 GM/DL (6.4-8.2)
== END ==
LOC: M WUC 08:19
PROVIDERS: ATTEND Nurse Practitioner Family
DX: I42.0 Dilated cardiomyopathy (principal); I48.91 Unspecified atrial fibrillation; I10 Essential (primary) hypertension

== ENCOUNTER → 2022-04-06 | Outpatient (REF) | payer OTHER ==
[~2022-04-06] MED LIST changes: +POTA-150 PO; -POTA10TA17 PO
[2022-04-06 16:49] LABS: BASO % 0.4 % (0.0-1.0); EOS # 0.1 10^3/uL (0.0-0.5); EOS % 1.9 % (0.0-3.0); HEMATOCRIT 51.7 % (42.0-52.0); HEMOGLOBIN 16.8 g/dl (13.5-17.5); LYMPH # 1.2 10^3/uL (1.5-5.0); LYMPH % 16.3 % (24.0-44.0); MEAN CORPUSCULAR HEMOGLOBIN 31.7 pg (27.0-33.0); MEAN CORPUSCULAR HGB CONC 32.5 g/dl (32.0-36.5); MEAN CORPUSCULAR VOLUME 97.5 fl (80.0-96.0); MONO # 0.7 10^3/uL (0.0-0.8); MONO % 9.1 % (2.0-8.0); NEUTROPHILS # 5.3 10^3/uL (1.5-8.5); NEUTROPHILS % 71.6 % (36.0-66.0); PLATELET COUNT, AUTOMATED 205 10^3/uL (150-450); WHITE BLOOD COUNT 7.4 10^3/uL (4.0-10.0)
[2022-04-06 17:01] LABS: ALBUMIN 3.8 G/DL (3.2-5.2); BILIRUBIN,TOTAL 0.9 MG/DL (0.3-1.2); CALCIUM LEVEL 9.1 MG/DL (8.3-10.6); CHOLESTEROL RISK RATIO 4.4 (<5); CREATININE FOR GFR 1.33 MG/DL (0.70-1.30); GLOMERULAR FILTRATION RATE 54.3 (>35); HDL CHOLESTEROL 34.5 MG/DL (>40); LDL CHOLESTEROL 96.5 MG/DL (<100); POTASSIUM SERUM 5.3 MMOL/L (3.5-5.1); TOTAL PROTEIN 6.9 G/DL (5.7-8.2)
[2022-04-06 17:03] LABS: THYROID STIMULATING HORMONE 2.512 uIU/ML (0.55-4.78)
[2022-04-06 17:09] LABS: HEMOGLOBIN A1c 5.8 % (4.0-6.0)
== END ==
LOC: M LAB REF 16:08
PROVIDERS: ATTEND Nurse Practitioner Family
DX: Z13.228 Encounter for screening for other metabolic disorders (principal)

== ENCOUNTER 2022-05-16 14:45 | Emergency (ER) | payer MEDICARE, OTHER ==
[~2022-05-16] VITALS: Ht 170.2 cm; Wt 80.7 kg
[2022-05-16 15:20] LABS: BASO # 0.1 10^3/uL (0.0-0.2); BASO % 0.5 % (0.0-1.0); EOS # 0.1 10^3/uL (0.0-0.5); EOS % 0.5 % (0.0-3.0); HEMATOCRIT 48.6 % (42.0-52.0); HEMOGLOBIN 15.7 g/dl (13.5-17.5); LYMPH # 1.1 10^3/uL (1.5-5.0); LYMPH % 8.7 % (24.0-44.0); MEAN CORPUSCULAR HEMOGLOBIN 31.8 pg (27.0-33.0); MEAN CORPUSCULAR HGB CONC 32.3 g/dl (32.0-36.5); MEAN CORPUSCULAR VOLUME 98.6 fl (80.0-96.0); MONO # 0.7 10^3/uL (0.0-0.8); MONO % 5.7 % (2.0-8.0); NEUTROPHILS # 10.7 10^3/uL (1.5-8.5); NEUTROPHILS % 83.9 % (36.0-66.0); PLATELET COUNT, AUTOMATED 259 10^3/uL (150-450); RED BLOOD COUNT 4.93 10^6/uL (4.30-6.10); WHITE BLOOD COUNT 12.8 10^3/uL (4.0-10.0)
[2022-05-16] MEDS ORDERED: METOPROLOL TART 25 MG TABLET PO ONE (15:20)
[2022-05-16] MEDS ORDERED: METOPROLOL 5 MG/5 ML VIAL IV PRN (15:20)
[2022-05-16 15:31] LABS: INR 1.39; PROTHROMBIN TIME 17.3 SECONDS (12.5-14.5)
[2022-05-16 15:32] LABS: PARTIAL THROMBOPLASTIN TIME 31.4 SECONDS (24.8-34.2)
[2022-05-16 15:48] LABS: ALBUMIN 3.4 G/DL (3.2-5.2); BILIRUBIN,DIRECT 0.7 MG/DL (<0.4); BILIRUBIN,TOTAL 1.8 MG/DL (0.3-1.2); CALCIUM LEVEL 9.3 MG/DL (8.3-10.6); CREATININE FOR GFR 1.44 MG/DL (0.70-1.30); GLOMERULAR FILTRATION RATE 49.5 (>35); POTASSIUM SERUM 4.5 MMOL/L (3.5-5.1); TOTAL PROTEIN 6.8 G/DL (5.7-8.2)
[2022-05-16] MEDS ORDERED: ISOVUE-370 76% 100ML VIAL As Ordered ONE (16:08)
[2022-05-16] MEDS ORDERED: NITROGLYCERIN 0.4MG SUBL TABLET As Ordered ONE (16:37)
[2022-05-16 16:38] VITALS: BP 112/68
[2022-05-16] MEDS ORDERED: NITROGLYCERIN 0.4MG SUBL TABLET SL PRN (16:40)
[2022-05-16] MEDS ORDERED: HEPARIN DRIP 25,000 UNITS in IV 1 EA IV SCH (17:15)
[2022-05-16 17:30] VITALS: BP 109/63
== END 2022-05-16 18:08 | disposition short-term general hospital (02) ==
LOC: M ED 14:45 → EDBD 14:45 → M ED 18:08
DX: I21.4 Non-ST elevation (NSTEMI) myocardial infarction (principal); J12.1 Respiratory syncytial virus pneumonia; I48.0 Paroxysmal atrial fibrillation; I45.4 Nonspecific intraventricular block; I44.4 Left anterior fascicular block; I10 Essential (primary) hypertension; E78.5 Hyperlipidemia, unspecified; Z79.01 Long term (current) use of anticoagulants; Z79.811 Long term (current) use of aromatase inhibitors; Z79.899 Other long term (current) drug therapy
CPT/HCPCS: 71045; 71275; 80048; 80076; 83880; 84484; 85025; 85610; 85730; 87486; 87581; 87633; 87798; 93005; 93041; 94760; 96365; 96375; 99285; Q9967

== ENCOUNTER 2022-07-05 16:03 | Inpatient (IN) | payer OTHER ==
[~2022-07-05] VITALS: Ht 170.2 cm; Wt 80.2 kg
[2022-07-05] MEDS ORDERED: LIDOCAINE 2% 5ML JELLY UROJET TOP ONE (17:20)
[2022-07-05 17:57] LABS: ABG BASE EXCESS 0.7 (-2.0-2.0); ABG O2 SATURATION 99.3 % (95.0-99.0); ABG PARTIAL PRESSURE CO2 44.4 mmHg (35.0-45.0); ABG PARTIAL PRESSURE O2 162.6 mmHg (75.0-100.0); ABG STANDARD HCO3 25.1 MEQ/L (22.0-26.0); ABG TOTAL CO2 27.3 MEQ/L (23.0-31.0); ABG pH (ARTERIAL) 7.385 UNITS (7.350-7.450)
[2022-07-05 18:04] LABS: BASO % 0.3 % (0.0-1.0); EOS % 0.4 % (0.0-3.0); HEMATOCRIT 37.8 % (42.0-52.0); HEMOGLOBIN 11.3 g/dl (13.5-17.5); LYMPH # 0.6 10^3/uL (1.5-5.0); LYMPH % 7.3 % (24.0-44.0); MEAN CORPUSCULAR HEMOGLOBIN 31.5 pg (27.0-33.0); MEAN CORPUSCULAR HGB CONC 29.9 g/dl (32.0-36.5); MEAN CORPUSCULAR VOLUME 105.3 fl (80.0-96.0); MONO # 0.3 10^3/uL (0.0-0.8); MONO % 4.3 % (2.0-8.0); NEUTROPHILS # 6.6 10^3/uL (1.5-8.5); NEUTROPHILS % 86.8 % (36.0-66.0); PLATELET COUNT, AUTOMATED 261 10^3/uL (150-450); RED BLOOD COUNT 3.59 10^6/uL (4.30-6.10); WHITE BLOOD COUNT 7.7 10^3/uL (4.0-10.0)
[2022-07-05 18:30] LABS: ALBUMIN 3.1 G/DL (3.2-5.2); BILIRUBIN,DIRECT 0.5 MG/DL (<0.4); BILIRUBIN,TOTAL 1.1 MG/DL (0.3-1.2); CALCIUM LEVEL 8.7 MG/DL (8.3-10.6); CK-MB VALUE MASS 5.2 NG/ML (<3.6); CREATININE FOR GFR 1.68 MG/DL (0.70-1.30); GLOMERULAR FILTRATION RATE 41.4 (>35); POTASSIUM SERUM 5.3 MMOL/L (3.5-5.1); THYROID STIMULATING HORMONE 8.2 uIU/ML (0.55-4.78); TOTAL PROTEIN 5.8 G/DL (5.7-8.2)
[2022-07-05 18:31] LABS: MB/CK RELATIVE INDEX 8.96 (< OR =4)
[2022-07-05 18:40] LABS: RSV AMPLIFICATION NEGATIVE (NEGATIVE)
[2022-07-05 19:53] LABS: CK-MB VALUE MASS 4.9 NG/ML (<3.6)
[2022-07-05] MEDS ORDERED: cefTRIAXone SOD 1 GM in D5W MINI-BAG PLUS 50 ML IV ONE (19:55)
[2022-07-05 19:57] LABS: MB/CK RELATIVE INDEX 9.24 (< OR =4)
[2022-07-05] MEDS ORDERED: FUROSEMIDE 20MG/2ML VIAL IV ONE (21:35)
[2022-07-05] MEDS ORDERED: FURO20TA2 PO (21:53)
[2022-07-05] MEDS ORDERED: ELIQ2.5T PO (21:53)
[2022-07-05] MEDS ORDERED: ASPI-655 PO (21:57)
[2022-07-05] MEDS ORDERED: DIGO0.123 PO (21:57)
[2022-07-05] MEDS ORDERED: ATOR40TA75 PO (21:57)
[2022-07-05] MEDS ORDERED: METO1TAB87 PO (21:57)
[2022-07-05] MEDS ORDERED: AMIO200T49 PO (21:57)
[2022-07-05] MEDS ORDERED: FLOM0.4C39 PO (21:57)
[2022-07-05] MEDS ORDERED: HOME MED LIST COMPLETE! XX SCH (22:00)
[2022-07-05 22:52] LABS: FREE T4 1.24 NG/DL (0.89-1.76)
[2022-07-05] MEDS ORDERED: DOXYCYCLINE HYCLATE 100 MG in D5W MINI-BAG PLUS 100 ML IV SCH (23:00)
[2022-07-05] MEDS: IPRATROPIUM 0.5MG/ALBUTEROL 2.5MG INH SOL UD 3ML (DUONEB) NEB PRN (23:36)
[2022-07-06] VITALS (24 sets, daily range): BP systolic 103–131; BP diastolic 58–92; O2SAT 78–100
[2022-07-06 01:17] LABS: INR 1.45; PROTHROMBIN TIME 17.9 SECONDS (12.5-14.5)
[2022-07-06 01:18] LABS: PARTIAL THROMBOPLASTIN TIME 36.3 SECONDS (24.8-34.2)
[2022-07-06] MEDS: ATORVASTATIN 20 MG TAB PO SCH ×2 (01:31→20:58)
[2022-07-06] MEDS: IPRATROPIUM 0.5MG/ALBUTEROL 2.5MG INH SOL UD 3ML (DUONEB) NEB PRN ×2 (02:16→22:07)
[2022-07-06 07:34] LABS: ALBUMIN 3.2 G/DL (3.2-5.2); CALCIUM LEVEL 8.8 MG/DL (8.3-10.6); CREATININE FOR GFR 1.89 MG/DL (0.70-1.30); GLOMERULAR FILTRATION RATE 36.2 (>35); MAGNESIUM LEVEL 2.1 MG/DL (1.8-2.4); POTASSIUM SERUM 4.9 MMOL/L (3.5-5.1); TOTAL PROTEIN 5.8 G/DL (5.7-8.2)
[2022-07-06 07:44] LABS: BASO # 0.1 10^3/uL (0.0-0.2); BASO % 0.6 % (0.0-1.0); EOS # 0.1 10^3/uL (0.0-0.5); EOS % 0.7 % (0.0-3.0); HEMATOCRIT 38.7 % (42.0-52.0); HEMOGLOBIN 11.6 g/dl (13.5-17.5); LYMPH # 0.9 10^3/uL (1.5-5.0); LYMPH % 10.4 % (24.0-44.0); MEAN CORPUSCULAR HEMOGLOBIN 31.5 pg (27.0-33.0); MEAN CORPUSCULAR VOLUME 105.2 fl (80.0-96.0); MONO # 0.5 10^3/uL (0.0-0.8); MONO % 5.5 % (2.0-8.0); NEUTROPHILS # 6.7 10^3/uL (1.5-8.5); NEUTROPHILS % 82.2 % (36.0-66.0); PLATELET COUNT, AUTOMATED 289 10^3/uL (150-450); RED BLOOD COUNT 3.68 10^6/uL (4.30-6.10); WHITE BLOOD COUNT 8.1 10^3/uL (4.0-10.0)
[2022-07-06] MEDS ORDERED: DOXYCYCLINE HYCLATE 100MG TABLET PO SCH (09:00)
[2022-07-06] MEDS: TAMSULOSIN 0.4 MG CAP PO SCH ×2 (09:00→09:30)
[2022-07-06] MEDS ORDERED: AMIODARONE 200 MG TAB (PACERONE) PO SCH (09:00)
[2022-07-06] MEDS: FUROSEMIDE 40MG/4ML VIAL IV SCH ×2 (09:29→17:46)
[2022-07-06] MEDS: ASPIRIN 81MG CHEW TABLET PO SCH (09:30)
[2022-07-06] MEDS: APIXABAN 2.5 MG TAB (ELIQUIS) PO SCH ×2 (09:30→20:58)
[2022-07-06] MEDS ORDERED: LORazepam 0.5 MG TAB PO ONE (10:05)
[2022-07-06 13:06] LABS: TOTAL 25(OH) VITAMIN D 32.2 NG/ML (20.0-100.0)
[2022-07-06] MEDS: QUEtiapine FUMARATE 12.5 MG HALF-TAB PO SCH (20:58)
[2022-07-06] MEDS ORDERED: cefTRIAXone SOD 1 GM in D5W MINI-BAG PLUS 50 ML IV SCH (21:00)
[2022-07-07] VITALS (22 sets, daily range): BP systolic 107–137; BP diastolic 57–84; O2SAT 79–100
[2022-07-07 07:33] LABS: BASO # 0.1 10^3/uL (0.0-0.2); BASO % 0.5 % (0.0-1.0); EOS # 0.2 10^3/uL (0.0-0.5); EOS % 2.2 % (0.0-3.0); HEMATOCRIT 34.1 % (42.0-52.0); HEMOGLOBIN 10.4 g/dl (13.5-17.5); LYMPH # 0.6 10^3/uL (1.5-5.0); LYMPH % 5.8 % (24.0-44.0); MEAN CORPUSCULAR HEMOGLOBIN 31.4 pg (27.0-33.0); MEAN CORPUSCULAR HGB CONC 30.5 g/dl (32.0-36.5); MONO # 0.6 10^3/uL (0.0-0.8); MONO % 5.7 % (2.0-8.0); NEUTROPHILS # 9.5 10^3/uL (1.5-8.5); NEUTROPHILS % 85.3 % (36.0-66.0); PLATELET COUNT, AUTOMATED 220 10^3/uL (150-450); RED BLOOD COUNT 3.31 10^6/uL (4.30-6.10); WHITE BLOOD COUNT 11.1 10^3/uL (4.0-10.0)
[2022-07-07] MEDS: TAMSULOSIN 0.4 MG CAP PO SCH (08:07)
[2022-07-07 08:11] LABS: ALBUMIN 2.8 G/DL (3.2-5.2); BILIRUBIN,TOTAL 0.5 MG/DL (0.3-1.2); CALCIUM LEVEL 8.1 MG/DL (8.3-10.6); CREATININE FOR GFR 1.91 MG/DL (0.70-1.30); GLOMERULAR FILTRATION RATE 35.7 (>35); MAGNESIUM LEVEL 2.1 MG/DL (1.8-2.4); THYROID STIMULATING HORMONE 5.142 uIU/ML (0.55-4.78); TOTAL PROTEIN 5.2 G/DL (5.7-8.2)
[2022-07-07] MEDS ORDERED: DIGOXIN 0.125 MG TAB PO SCH (09:00)
[2022-07-07] MEDS: ASPIRIN 81MG CHEW TABLET PO SCH (10:12)
[2022-07-07] MEDS: FUROSEMIDE 40MG/4ML VIAL IV SCH ×3 (10:12→21:21)
[2022-07-07] MEDS ORDERED: LevoFLOXacin IV 750 MG in IV 1 EA IV ONE (11:00)
[2022-07-07] MEDS ORDERED: LevoFLOXacin 750 MG TABLET PO ONE (16:00)
[2022-07-07 18:18] LABS: HEMATOCRIT 33.4 % (42.0-52.0); HEMOGLOBIN 10.1 g/dl (13.5-17.5)
[2022-07-07] MEDS: QUEtiapine FUMARATE 12.5 MG HALF-TAB PO SCH (21:16)
[2022-07-07] MEDS: ATORVASTATIN 20 MG TAB PO SCH (21:16)
[2022-07-07] MEDS: ACETAMINOPHEN TAB 650MG DOSE (2X325MG) PO PRN (21:32)
[2022-07-08] VITALS (29 sets, daily range): BP systolic 102–125; BP diastolic 58–81; O2SAT 74–99
[2022-07-08] MEDS: FUROSEMIDE 40MG/4ML VIAL IV SCH ×4 (05:24→22:06)
[2022-07-08 05:35] LABS: BASO % 0.5 % (0.0-1.0); EOS # 0.4 10^3/uL (0.0-0.5); EOS % 4.2 % (0.0-3.0); HEMATOCRIT 31.2 % (42.0-52.0); HEMOGLOBIN 9.5 g/dl (13.5-17.5); LYMPH # 0.7 10^3/uL (1.5-5.0); LYMPH % 7.9 % (24.0-44.0); MEAN CORPUSCULAR HEMOGLOBIN 31.4 pg (27.0-33.0); MEAN CORPUSCULAR HGB CONC 30.4 g/dl (32.0-36.5); MONO # 0.6 10^3/uL (0.0-0.8); MONO % 6.5 % (2.0-8.0); NEUTROPHILS # 6.9 10^3/uL (1.5-8.5); NEUTROPHILS % 80.2 % (36.0-66.0); PLATELET COUNT, AUTOMATED 217 10^3/uL (150-450); RED BLOOD COUNT 3.03 10^6/uL (4.30-6.10); WHITE BLOOD COUNT 8.6 10^3/uL (4.0-10.0)
[2022-07-08 06:11] LABS: ALBUMIN 2.5 G/DL (3.2-5.2); BILIRUBIN,TOTAL 0.6 MG/DL (0.3-1.2); CALCIUM LEVEL 8.1 MG/DL (8.3-10.6); CREATININE FOR GFR 1.83 MG/DL (0.70-1.30); GLOMERULAR FILTRATION RATE 37.6 (>35); POTASSIUM SERUM 3.8 MMOL/L (3.5-5.1); TOTAL PROTEIN 4.8 G/DL (5.7-8.2)
[2022-07-08] MEDS: IPRATROPIUM 0.5MG/ALBUTEROL 2.5MG INH SOL UD 3ML (DUONEB) NEB SCH ×3 (08:00→20:56)
[2022-07-08] MEDS ORDERED: POTASSIUM CHLORIDE 10MEQ SR TABLET PO ONE (08:50)
[2022-07-08] MEDS: TAMSULOSIN 0.4 MG CAP PO SCH (09:00)
[2022-07-08] MEDS ORDERED: SPIRONOLACTONE 25 MG TAB PO SCH (09:00)
[2022-07-08] MEDS: ASPIRIN 81MG CHEW TABLET PO SCH (09:34)
[2022-07-08] MEDS ORDERED: OLANZapine INTRAMUSCULAR 10MG VIAL IM ONE (14:20)
[2022-07-08] MEDS: QUEtiapine FUMARATE 25 MG TAB PO SCH (21:21)
[2022-07-08] MEDS: ATORVASTATIN 20 MG TAB PO SCH (21:21)
[2022-07-08] MEDS: ACETAMINOPHEN TAB 650MG DOSE (2X325MG) PO PRN (21:21)
[2022-07-09] VITALS (18 sets, daily range): BP systolic 118–132; BP diastolic 56–73; O2SAT 92–100
[2022-07-09] MEDS ORDERED: QUEtiapine FUMARATE 25 MG TAB PO PRN (00:40)
[2022-07-09] MEDS: IPRATROPIUM 0.5MG/ALBUTEROL 2.5MG INH SOL UD 3ML (DUONEB) NEB SCH ×4 (02:39→20:45)
[2022-07-09] MEDS: FUROSEMIDE 40MG/4ML VIAL IV SCH ×3 (03:31→21:10)
[2022-07-09 04:41] LABS: BASO # 0.1 10^3/uL (0.0-0.2); BASO % 0.6 % (0.0-1.0); EOS # 0.4 10^3/uL (0.0-0.5); EOS % 4.7 % (0.0-3.0); HEMATOCRIT 32.1 % (42.0-52.0); HEMOGLOBIN 10.1 g/dl (13.5-17.5); LYMPH # 0.9 10^3/uL (1.5-5.0); LYMPH % 11.3 % (24.0-44.0); MEAN CORPUSCULAR HEMOGLOBIN 31.9 pg (27.0-33.0); MEAN CORPUSCULAR HGB CONC 31.5 g/dl (32.0-36.5); MEAN CORPUSCULAR VOLUME 101.3 fl (80.0-96.0); MONO # 0.6 10^3/uL (0.0-0.8); MONO % 7.8 % (2.0-8.0); NEUTROPHILS # 5.9 10^3/uL (1.5-8.5); NEUTROPHILS % 74.8 % (36.0-66.0); PLATELET COUNT, AUTOMATED 225 10^3/uL (150-450); RED BLOOD COUNT 3.17 10^6/uL (4.30-6.10); WHITE BLOOD COUNT 7.9 10^3/uL (4.0-10.0)
[2022-07-09 05:18] LABS: ALBUMIN 2.8 G/DL (3.2-5.2); BILIRUBIN,TOTAL 0.9 MG/DL (0.3-1.2); CALCIUM LEVEL 8.7 MG/DL (8.3-10.6); CREATININE FOR GFR 1.84 MG/DL (0.70-1.30); GLOMERULAR FILTRATION RATE 37.3 (>35); MAGNESIUM LEVEL 1.9 MG/DL (1.8-2.4); POTASSIUM SERUM 3.8 MMOL/L (3.5-5.1); TOTAL PROTEIN 5.3 G/DL (5.7-8.2)
[2022-07-09] MEDS ORDERED: LevoFLOXacin 750 MG TABLET PO ONE (06:00)
[2022-07-09] MEDS: SPIRONOLACTONE 25 MG TAB PO SCH (09:48)
[2022-07-09] MEDS: ASPIRIN 81MG CHEW TABLET PO SCH (09:48)
[2022-07-09] MEDS ORDERED: LevoFLOXacin IV 750 MG in IV 1 EA IV SCH (11:00)
[2022-07-09] MEDS: HEPARIN SOD (PORCINE) 5000UNITS/ML 1ML VIAL/SYRINGE SQ SCH ×2 (13:09→21:10)
[2022-07-09] MEDS: METOPROLOL TART 12.5 MG PER 1/2 TAB PO SCH ×2 (13:10→21:09)
[2022-07-09] MEDS: LevoFLOXacin 500 MG TABLET PO SCH (18:19)
[2022-07-09] MEDS: ATORVASTATIN 20 MG TAB PO SCH (21:09)
[2022-07-09] MEDS: QUEtiapine FUMARATE 25 MG TAB PO SCH (21:10)
[2022-07-10] VITALS (15 sets, daily range): BP systolic 108–130; BP diastolic 58–81; O2SAT 92–98
[2022-07-10] MEDS ORDERED: QUEtiapine FUMARATE 25 MG TAB PO ONE (00:55)
[2022-07-10] MEDS ORDERED: diphenhydrAMINE 50MG/ML VIAL IV PRN (01:10)
[2022-07-10] MEDS ORDERED: diphenhydrAMINE 50MG/ML VIAL IV ONE (01:20)
[2022-07-10] MEDS: IPRATROPIUM 0.5MG/ALBUTEROL 2.5MG INH SOL UD 3ML (DUONEB) NEB SCH ×4 (01:32→21:02)
[2022-07-10 05:44] LABS: BASO # 0.1 10^3/uL (0.0-0.2); BASO % 0.7 % (0.0-1.0); EOS # 0.4 10^3/uL (0.0-0.5); EOS % 4.5 % (0.0-3.0); HEMATOCRIT 32.4 % (42.0-52.0); HEMOGLOBIN 10.2 g/dl (13.5-17.5); LYMPH # 0.7 10^3/uL (1.5-5.0); LYMPH % 8.3 % (24.0-44.0); MEAN CORPUSCULAR HEMOGLOBIN 32.2 pg (27.0-33.0); MEAN CORPUSCULAR HGB CONC 31.5 g/dl (32.0-36.5); MEAN CORPUSCULAR VOLUME 102.2 fl (80.0-96.0); MONO # 0.7 10^3/uL (0.0-0.8); MONO % 7.8 % (2.0-8.0); NEUTROPHILS # 6.6 10^3/uL (1.5-8.5); NEUTROPHILS % 78.1 % (36.0-66.0); PLATELET COUNT, AUTOMATED 233 10^3/uL (150-450); RED BLOOD COUNT 3.17 10^6/uL (4.30-6.10); WHITE BLOOD COUNT 8.5 10^3/uL (4.0-10.0)
[2022-07-10 06:13] LABS: ALBUMIN 2.8 G/DL (3.2-5.2); BILIRUBIN,TOTAL 1.4 MG/DL (0.3-1.2); CALCIUM LEVEL 8.8 MG/DL (8.3-10.6); CREATININE FOR GFR 1.88 MG/DL (0.70-1.30); GLOMERULAR FILTRATION RATE 36.4 (>35); POTASSIUM SERUM 3.8 MMOL/L (3.5-5.1); TOTAL PROTEIN 5.2 G/DL (5.7-8.2)
[2022-07-10] MEDS: HEPARIN SOD (PORCINE) 5000UNITS/ML 1ML VIAL/SYRINGE SQ SCH ×3 (06:15→21:23)
[2022-07-10] MEDS: FUROSEMIDE 40MG/4ML VIAL IV SCH (09:11)
[2022-07-10] MEDS: METOPROLOL TART 12.5 MG PER 1/2 TAB PO SCH ×2 (09:12→21:23)
[2022-07-10] MEDS: SPIRONOLACTONE 25 MG TAB PO SCH (09:12)
[2022-07-10] MEDS: ASPIRIN 81MG CHEW TABLET PO SCH (09:14)
[2022-07-10] MEDS ORDERED: OLANZapine INTRAMUSCULAR 10MG VIAL IM PRN (16:05)
[2022-07-10] MEDS ORDERED: OLANZapine 2.5MG TABLET PO SCH (21:00)
[2022-07-10] MEDS: ATORVASTATIN 20 MG TAB PO SCH (21:23)
[2022-07-11] VITALS (7 sets, daily range): BP systolic 117–144; BP diastolic 60–89
[2022-07-11] MEDS: IPRATROPIUM 0.5MG/ALBUTEROL 2.5MG INH SOL UD 3ML (DUONEB) NEB SCH ×4 (01:31→19:11)
[2022-07-11 05:42] LABS: BASO # 0.1 10^3/uL (0.0-0.2); BASO % 0.7 % (0.0-1.0); EOS # 0.3 10^3/uL (0.0-0.5); EOS % 3.4 % (0.0-3.0); HEMOGLOBIN 10.5 g/dl (13.5-17.5); LYMPH # 0.9 10^3/uL (1.5-5.0); LYMPH % 10.8 % (24.0-44.0); MEAN CORPUSCULAR HEMOGLOBIN 31.6 pg (27.0-33.0); MEAN CORPUSCULAR HGB CONC 30.9 g/dl (32.0-36.5); MEAN CORPUSCULAR VOLUME 102.4 fl (80.0-96.0); MONO # 0.8 10^3/uL (0.0-0.8); MONO % 8.9 % (2.0-8.0); NEUTROPHILS # 6.4 10^3/uL (1.5-8.5); NEUTROPHILS % 75.6 % (36.0-66.0); PLATELET COUNT, AUTOMATED 239 10^3/uL (150-450); RED BLOOD COUNT 3.32 10^6/uL (4.30-6.10); WHITE BLOOD COUNT 8.5 10^3/uL (4.0-10.0)
[2022-07-11] MEDS: HEPARIN SOD (PORCINE) 5000UNITS/ML 1ML VIAL/SYRINGE SQ SCH ×3 (05:45→23:39)
[2022-07-11 06:08] LABS: BILIRUBIN,TOTAL 1.2 MG/DL (0.3-1.2); CALCIUM LEVEL 8.7 MG/DL (8.3-10.6); CREATININE FOR GFR 1.88 MG/DL (0.70-1.30); GLOMERULAR FILTRATION RATE 36.4 (>35); MAGNESIUM LEVEL 2.2 MG/DL (1.8-2.4); POTASSIUM SERUM 3.6 MMOL/L (3.5-5.1); TOTAL PROTEIN 5.5 G/DL (5.7-8.2)
[2022-07-11] MEDS ORDERED: POTASSIUM CHLORIDE 10MEQ SR TABLET PO ONE (09:00)
[2022-07-11] MEDS: METOPROLOL TART 12.5 MG PER 1/2 TAB PO SCH ×2 (09:30→20:29)
[2022-07-11] MEDS: ASPIRIN 81MG CHEW TABLET PO SCH (09:30)
[2022-07-11] MEDS: FUROSEMIDE 40 MG TAB PO SCH (09:31)
[2022-07-11] MEDS: SPIRONOLACTONE 25 MG TAB PO SCH (09:31)
[2022-07-11] MEDS: LevoFLOXacin 500 MG TABLET PO SCH (17:23)
[2022-07-11] MEDS: ATORVASTATIN 20 MG TAB PO SCH (20:11)
[2022-07-11] MEDS ORDERED: OLANZapine 10 MG TAB PO SCH (21:00)
[2022-07-12] MEDS: IPRATROPIUM 0.5MG/ALBUTEROL 2.5MG INH SOL UD 3ML (DUONEB) NEB SCH ×4 (01:50→19:07)
[2022-07-12 05:40] VITALS: BP 133/74
[2022-07-12 06:04] LABS: BASO # 0.1 10^3/uL (0.0-0.2); BASO % 0.8 % (0.0-1.0); EOS # 0.1 10^3/uL (0.0-0.5); EOS % 1.4 % (0.0-3.0); HEMATOCRIT 32.8 % (42.0-52.0); LYMPH # 0.9 10^3/uL (1.5-5.0); LYMPH % 11.5 % (24.0-44.0); MEAN CORPUSCULAR HEMOGLOBIN 31.2 pg (27.0-33.0); MEAN CORPUSCULAR HGB CONC 30.5 g/dl (32.0-36.5); MEAN CORPUSCULAR VOLUME 102.2 fl (80.0-96.0); MONO # 0.9 10^3/uL (0.0-0.8); MONO % 11.1 % (2.0-8.0); NEUTROPHILS # 5.8 10^3/uL (1.5-8.5); NEUTROPHILS % 74.7 % (36.0-66.0); PLATELET COUNT, AUTOMATED 246 10^3/uL (150-450); RED BLOOD COUNT 3.21 10^6/uL (4.30-6.10); WHITE BLOOD COUNT 7.7 10^3/uL (4.0-10.0)
[2022-07-12 06:31] LABS: BILIRUBIN,TOTAL 1.2 MG/DL (0.3-1.2); CALCIUM LEVEL 8.6 MG/DL (8.3-10.6); CREATININE FOR GFR 1.96 MG/DL (0.70-1.30); GLOMERULAR FILTRATION RATE 34.7 (>35); MAGNESIUM LEVEL 2.2 MG/DL (1.8-2.4); POTASSIUM SERUM 4.3 MMOL/L (3.5-5.1); TOTAL PROTEIN 5.4 G/DL (5.7-8.2)
[2022-07-12] MEDS: HEPARIN SOD (PORCINE) 5000UNITS/ML 1ML VIAL/SYRINGE SQ SCH ×3 (06:38→21:06)
[2022-07-12] MEDS: ASPIRIN 81MG CHEW TABLET PO SCH (08:25)
[2022-07-12] MEDS: METOPROLOL TART 12.5 MG PER 1/2 TAB PO SCH ×2 (08:25→21:05)
[2022-07-12] MEDS: SPIRONOLACTONE 25 MG TAB PO SCH (08:25)
[2022-07-12] MEDS: FUROSEMIDE 40 MG TAB PO SCH (08:25)
[2022-07-12] MEDS: D5W 1,000 ML IV SCH ×2 (09:00→17:15)
[2022-07-12] MEDS: OLANZapine 10 MG TAB PO SCH ×2 (11:54→21:05)
[2022-07-12] MEDS ORDERED: MOM 30ML SUSPENSION UDC PO ONE (14:10)
[2022-07-12] MEDS: MIRALAX *UNIT DOSE* 17GM PACKET PO SCH (14:44)
[2022-07-12 16:08] LABS: BODY FLUID CULTURE Not indicated. (.); LEGIONELLA ANTIGEN URINE Negative (Negative); ORGANISM ID Not indicated. (.); SPECIMEN SOURCE Urine (.); URINE STREP PNEUMONIAE ANTIGEN Negative (Negative)
[2022-07-12] MEDS ORDERED: BISACODYL 10MG SUPP PR ONE (18:15)
[2022-07-12 20:00] VITALS: BP 120/80
[2022-07-12] MEDS: ATORVASTATIN 20 MG TAB PO SCH (21:05)
[2022-07-12 21:15] VITALS: BP 118/74
[2022-07-13] MEDS: IPRATROPIUM 0.5MG/ALBUTEROL 2.5MG INH SOL UD 3ML (DUONEB) NEB SCH ×2 (01:17→07:11)
[2022-07-13] MEDS: D5W 1,000 ML IV SCH ×2 (01:20→13:19)
[2022-07-13] MEDS: HEPARIN SOD (PORCINE) 5000UNITS/ML 1ML VIAL/SYRINGE SQ SCH ×2 (05:54→14:35)
[2022-07-13 06:00] VITALS: BP 120/60
[2022-07-13 06:08] LABS: BASO % 0.5 % (0.0-1.0); EOS # 0.2 10^3/uL (0.0-0.5); EOS % 2.7 % (0.0-3.0); HEMATOCRIT 31.3 % (42.0-52.0); HEMOGLOBIN 9.5 g/dl (13.5-17.5); LYMPH # 0.9 10^3/uL (1.5-5.0); LYMPH % 10.8 % (24.0-44.0); MEAN CORPUSCULAR HEMOGLOBIN 30.9 pg (27.0-33.0); MEAN CORPUSCULAR HGB CONC 30.4 g/dl (32.0-36.5); MONO # 0.9 10^3/uL (0.0-0.8); MONO % 10.9 % (2.0-8.0); NEUTROPHILS # 6.1 10^3/uL (1.5-8.5); NEUTROPHILS % 74.4 % (36.0-66.0); PLATELET COUNT, AUTOMATED 201 10^3/uL (150-450); RED BLOOD COUNT 3.07 10^6/uL (4.30-6.10); WHITE BLOOD COUNT 8.3 10^3/uL (4.0-10.0)
[2022-07-13 06:42] LABS: ALBUMIN 2.8 G/DL (3.2-5.2); BILIRUBIN,TOTAL 1.3 MG/DL (0.3-1.2); CALCIUM LEVEL 8.3 MG/DL (8.3-10.6); CREATININE FOR GFR 1.94 MG/DL (0.70-1.30); GLOMERULAR FILTRATION RATE 35.1 (>35); MAGNESIUM LEVEL 2.3 MG/DL (1.8-2.4); POTASSIUM SERUM 3.6 MMOL/L (3.5-5.1); TOTAL PROTEIN 5.2 G/DL (5.7-8.2)
[2022-07-13 07:26] LABS: ABG BASE EXCESS 7.4 (-2.0-2.0); ABG HCO3 31.4 MEQ/L (22.0-26.0); ABG O2 SATURATION 98.8 % (95.0-99.0); ABG PARTIAL PRESSURE O2 143.8 mmHg (75.0-100.0); ABG STANDARD HCO3 31.2 MEQ/L (22.0-26.0); ABG TOTAL CO2 32.7 MEQ/L (23.0-31.0); ABG pH (ARTERIAL) 7.491 UNITS (7.350-7.450)
[2022-07-13] MEDS: MIRALAX *UNIT DOSE* 17GM PACKET PO SCH (09:00)
[2022-07-13] MEDS: ASPIRIN 81MG CHEW TABLET PO SCH (09:00)
[2022-07-13] MEDS: FUROSEMIDE 40 MG TAB PO SCH (09:00)
[2022-07-13] MEDS: SPIRONOLACTONE 25 MG TAB PO SCH (09:00)
[2022-07-13] MEDS: OLANZapine 10 MG TAB PO SCH (09:00)
[2022-07-13] MEDS: METOPROLOL TART 12.5 MG PER 1/2 TAB PO SCH (09:00)
[2022-07-13 14:00] VITALS: BP 113/65
[2022-07-13] MEDS ORDERED: HYOSCYAMINE SULFATE 0.125 MG SUBL TABLET PO PRN (17:10)
[2022-07-13] MEDS ORDERED: SALIVA SUBSTITUTE(MOUTHKOTE) BTL MT PRN (19:20)
[2022-07-14] MEDS: LORazepam 1 MG TAB PO PRN (18:30)
[2022-07-14] MEDS: OLANZapine 10 MG TAB PO PRN (21:13)
[2022-07-14] MEDS: ACETAMINOPHEN TAB 650MG DOSE (2X325MG) PO PRN (21:13)
[2022-07-14] MEDS: MORPHINE 10MG/0.5ML ORAL CONCENTRATE SOLUTION U/D SL PRN (21:52)
[2022-07-15] MEDS: MORPHINE 10MG/0.5ML ORAL CONCENTRATE SOLUTION U/D SL PRN ×2 (19:54→23:58)
[2022-07-15] MEDS: OLANZapine 10 MG TAB PO PRN (19:54)
[2022-07-15] MEDS: LORazepam 1 MG TAB PO PRN (23:59)
[2022-07-17] MEDS: LORazepam 1 MG TAB PO PRN ×2 (11:04→22:25)
[2022-07-17] MEDS: IPRATROPIUM 0.5MG/ALBUTEROL 2.5MG INH SOL UD 3ML (DUONEB) NEB PRN (11:13)
[2022-07-19] MEDS: IPRATROPIUM 0.5MG/ALBUTEROL 2.5MG INH SOL UD 3ML (DUONEB) NEB PRN (01:24)
[2022-07-19] MEDS: MORPHINE 10MG/0.5ML ORAL CONCENTRATE SOLUTION U/D SL PRN ×2 (01:48→17:44)
[2022-07-19] MEDS: SCOPOLAMINE 1MG TRANSDERMAL PATCH TOP PRN (01:48)
[2022-07-20] MEDS: LORazepam 1 MG TAB PO PRN ×3 (03:35→16:35)
[2022-07-20] MEDS: OLANZapine 10 MG TAB PO PRN (03:35)
[2022-07-20] MEDS: MORPHINE 10MG/0.5ML ORAL CONCENTRATE SOLUTION U/D SL PRN ×2 (07:50→16:35)
[2022-07-21] MEDS ORDERED: MORPHINE 2 MG/ML 1ML VIAL IV ONE (02:35)
[2022-07-21] MEDS ORDERED: LORazepam 2 MG/ML 1ML VIAL IV ONE (02:35)
[2022-07-21] MEDS: IPRATROPIUM 0.5MG/ALBUTEROL 2.5MG INH SOL UD 3ML (DUONEB) NEB PRN (03:52)
[2022-07-21] MEDS: MORPHINE 10MG/0.5ML ORAL CONCENTRATE SOLUTION U/D SL PRN (18:10)
[2022-07-21] MEDS: LORazepam 1 MG TAB PO PRN (18:10)
[2022-07-22] MEDS: LORazepam 1 MG TAB PO PRN ×2 (03:32→09:02)
[2022-07-22] MEDS: SCOPOLAMINE 1MG TRANSDERMAL PATCH TOP PRN (03:32)
[2022-07-22] MEDS: MORPHINE 10MG/0.5ML ORAL CONCENTRATE SOLUTION U/D SL PRN (09:02)
[2022-07-23] MEDS ORDERED: MORP1SOL5 PO (08:11)
[2022-07-23] MEDS ORDERED: HYOS125TA PO (08:11)
[2022-07-23] MEDS ORDERED: ATIV1TAB10 PO (08:11)
[2022-07-23] MEDS: MORPHINE 10MG/0.5ML ORAL CONCENTRATE SOLUTION U/D SL PRN (11:08)
== END 2022-07-23 11:27 | disposition hospice, home (50) | DRG 291 ==
LOC: EDBD 16:03 → M ED 16:03 → M ED INP 21:33 → M PCU 07-06 01:58 → M MSPAV 07-11 14:04
PROVIDERS: ADMIT Internal Medicine; ATTEND Internal Medicine
DX: I13.0 Hypertensive heart and chronic kidney disease with heart failure and stage 1 through stage 4 chronic kidney disease, or unspecified chronic kidney disease (principal); G93.41 Metabolic encephalopathy; I50.23 Acute on chronic systolic (congestive) heart failure; N39.0 Urinary tract infection, site not specified; N17.9 Acute kidney failure, unspecified; E87.0 Hyperosmolality and hypernatremia; J98.11 Atelectasis; D68.32 Hemorrhagic disorder due to extrinsic circulating anticoagulants; I96 Gangrene, not elsewhere classified; E78.5 Hyperlipidemia, unspecified; K21.9 Gastro-esophageal reflux disease without esophagitis; I25.10 Atherosclerotic heart disease of native coronary artery without angina pectoris; I48.91 Unspecified atrial fibrillation; R00.1 Bradycardia, unspecified; N40.1 Benign prostatic hyperplasia with lower urinary tract symptoms; Z95.1 Presence of aortocoronary bypass graft; G47.33 Obstructive sleep apnea (adult) (pediatric); R29.6 Repeated falls; Z66 Do not resuscitate; E03.9 Hypothyroidism, unspecified; R31.0 Gross hematuria; I27.20 Pulmonary hypertension, unspecified; N18.30 Chronic kidney disease, stage 3 unspecified; F03.90 Unspecified dementia, unspecified severity, without behavioral disturbance, psychotic disturbance, mood disturbance, and anxiety; I25.2 Old myocardial infarction; E87.6 Hypokalemia; B96.5 Pseudomonas (aeruginosa) (mallei) (pseudomallei) as the cause of diseases classified elsewhere; Z79.82 Long term (current) use of aspirin; Z79.899 Other long term (current) drug therapy; Z96.652 Presence of left artificial knee joint